=== PATIENT | female | born 2005 | race Caucasian/White ===

== ENCOUNTER 2023-01-22 13:19 | Outpatient (OUT) | payer OTHER, SELFPAY ==
--- NOTE | 2023-01-22 13:24 | US_ITS ---
[address] [address] Patient Name: LINDSAY MOORE MRN: [id number] date: 2005 Sex: F Assigned Patient Location: Current Patient Location: Accession/Order Number: [id number] Exam Date: 01/22/2023 13:25 Report Date: 01/22/2023 15:38 At the request of: PHILOMENA PAZ Procedure: US OB >= 14 weeks Fetus EXAMINATION: US OB >= 14 weeks Fetus HISTORY: MISSED MENSES COMPARISON: No relevant comparison available. FINDINGS: Heart Rate: 139.0 bpm Number: 1.0 Position: Variable Amniotic Fluid Volume: Subjectively normal BIOMETRY: BPD: 4.2 cm cm; 18 weeks 6 days HC: 15.7 cmcm; 18 weeks 4 days AC: 12.7 cm cm; 18 weeks 2 days FL: 2.6 cm cm; 18 weeks 0 days EFW: 230.4 grams FL/AC: 20.7 FL/BPD: 62.3 HC/AC: 1.2 GESTATIONAL AGE: Age by EDC: 17 weeks 6 days GENOVEVA by EDC: 06/26/2023 Age by US: 18 weeks 3 days GENOVEVA by US: 06/22/2023 US/US OB >= 14 weeks Fetus IMPRESSION: 1. Single live intrauterine with growth detailed above. Electronically authenticated by: DOUGLAS QUIROGA Date: 01/22/2023 15:38
== END 2023-01-22 13:20 | disposition home or self-care (01) ==
LOC: US 13:21
PROVIDERS: Visit Provider Obstetrics & Gynecology
DX: Z34.92 Encounter for supervision of normal pregnancy, unspecified, second trimester (principal); Z3A.17 17 weeks gestation of pregnancy
CPT/HCPCS: 76815

== ENCOUNTER 2023-02-10 13:05 | Outpatient (OUT) | payer OTHER, SELFPAY ==
--- NOTE | 2023-02-10 13:08 | US_ITS ---
[address] [address] Patient Name: LINDSAY MOORE MRN: [id number] date: 2005 Sex: F Assigned Patient Location: US Current Patient Location: Accession/Order Number: [id number] Exam Date: 02/10/2023 13:08 Report Date: 02/10/2023 16:07 At the request of: PHILOMENA PAZ Procedure: US OB cervical length EXAMINATION: US OB anatomy, US OB cervical length HISTORY: ANATOMY COMPARISON: No relevant comparison available. TECHNIQUE: Transabdominal sonographic examination was performed for obstetrical and evaluation. FINDINGS: Number: 1 Amniotic Fluid Volume: Subjectively normal position: Cephalic presentation, longitudinal lie Placental Location: Anterior fundal. The placental edge is 4.8 cm from the cervical os Cervix Length: 4.0 cm, closed Heart rate: Present Normal anatomy: Lateral ventricles, cerebellum, posterior fossa, nose, lips, orbits, four-chamber heart, RVOT, LVOT, diaphragm, stomach, kidneys, abdominal cord insertion, bladder, umbilical arteries, three-vessel cord, spine, extremities BIOMETRY: BPD: 5.0 cm 21 weeks 1 days , 46% HC: 18.7 cm 21 weeks 0 days, 35% AC: 15.4 cm 20 weeks 4 days, 25% FL: 3.2 cm 20 weeks 0 days , 10% EFW:352.9 grams; 12 ounces, 14% FL/AC: 20.9 FL/BPD: 64.7 HC/AC: 1.2 GESTATIONAL AGE: Age by EDC: 21 weeks 1 days Age by current US: 20 weeks 5 days GENOVEVA by current US: 06/25/2023 GENOVEVA by EDC: 06/22/2023 US/US OB cervical length IMPRESSION: Normal anatomy scan Closed cervix measuring 4.0 cm in length *Reference: [employer] Practice Guideline for the performance of Obstetric Ultrasound Examinations, November 23, 2006. Electronically authenticated by: CYNDI GATES Date: 02/10/2023 16:07
--- NOTE | 2023-02-10 13:08 | US_ITS ---
[address] [address] Patient Name: LIDNSAY MOORE MRN: [id number] date: 2005 Sex: F Assigned Patient Location: US Current Patient Location: US Accession/Order Number: [id number] Exam Date: 02/10/2023 13:09 Report Date: 02/10/2023 16:07 At the request of: PHILOMENA PAZ Procedure: US OB anatomy EXAMINATION: US OB anatomy, US OB cervical length HISTORY: ANATOMY COMPARISON: No relevant comparison available. TECHNIQUE: Transabdominal sonographic examination was performed for obstetrical and evaluation. FINDINGS: Number: 1 Amniotic Fluid Volume: Subjectively normal position: Cephalic presentation, longitudinal lie Placental Location: Anterior fundal. The placental edge is 4.8 cm from the cervical os Cervix Length: 4.0 cm, closed Heart rate: Present Normal anatomy: Lateral ventricles, cerebellum, posterior fossa, nose, lips, orbits, four-chamber heart, RVOT, LVOT, diaphragm, stomach, kidneys, abdominal cord insertion, bladder, umbilical arteries, three-vessel cord, spine, extremities BIOMETRY: BPD: 5.0 cm 21 weeks 1 days , 46% HC: 18.7 cm 21 weeks 0 days, 35% AC: 15.4 cm 20 weeks 4 days, 25% FL: 3.2 cm 20 weeks 0 days , 10% EFW:352.9 grams; 12 ounces, 14% FL/AC: 20.9 FL/BPD: 64.7 HC/AC: 1.2 GESTATIONAL AGE: Age by EDC: 21 weeks 1 days Age by current US: 20 weeks 5 days GENOVEVA by current US: 06/25/2023 GENOVEVA by EDC: 06/22/2023 US/US OB anatomy IMPRESSION: Normal anatomy scan Closed cervix measuring 4.0 cm in length *Reference: [employer] Practice Guideline for the performance of Obstetric Ultrasound Examinations, November 23, 2006. Electronically authenticated by: CYNDI GATES Date: 02/10/2023 16:07
== END 2023-02-10 13:06 | disposition home or self-care (01) ==
LOC: US 13:06
PROVIDERS: Visit Provider Obstetrics & Gynecology
DX: N92.6 Irregular menstruation, unspecified (principal); Z36.89 Encounter for other specified antenatal screening; Z3A.21 21 weeks gestation of pregnancy
CPT/HCPCS: 76805; 76817

== ENCOUNTER 2023-05-06 15:42 | Outpatient (OUT) | payer OTHER, SELFPAY ==
[2023-05-06 16:15] LABS: Basophils Percent Auto 0.3 % (0.2-2.0); Eosinophils Absolute Auto 0.1 10^3/uL (0.0-0.7); Eosinophils Percent Auto 0.8 % (0.9-7.0); Hematocrit 27.7 % (36.0-48.0); Hemoglobin 9.1 g/dL (12.0-16.0); Immature Granulocytes Abs Auto 0.09 10^3/uL (0.00-0.03); Immature Granulocytes Pct Auto 0.9 % (0.0-0.5); Lymphocytes Absolute Auto 1.7 10^3/uL (1.2-3.8); Lymphocytes Percent Auto 16.9 % (20.5-60.0); Mean Corpuscular HGB Conc 32.9 g/dL (29.9-35.2); Mean Corpuscular Hemoglobin 30.1 pg (26.7-34.0); Mean Corpuscular Volume 91.7 fL (81.0-99.0); Mean Platelet Volume 10.1 fL (9.5-13.5); Monocytes Absolute Auto 0.4 10^3/uL (0.3-0.8); Monocytes Percent Auto 4.4 % (1.7-12.0); Neutrophils Absolute Auto 7.5 10^3/uL (1.4-6.5); Neutrophils Percent Auto 76.7 % (43.0-75.0); Platelet Count 336 10^3/uL (150-450); Red Blood Count 3.02 10^6/uL (4.20-5.40); Red Cell Distribution Width 13.4 % (11.0-15.0); White Blood Count 9.8 10^3/uL (4.0-11.0)
[2023-05-06 16:39] LABS: Estimated Average Glucose 114 mg/dL; Glycohemoglobin A1C 5.6 % (4.5-6.2)
[2023-05-06 16:57] LABS: Thyroid Stimulating Hormone 4.489 uIU/mL (0.516-4.130)
[2023-05-08 06:09] LABS: HBsAg Screen Negative (Negative); HCV Ab Non Reactive (Non Reactive); HIV Ab/p24 Ag Screen Non Reactive (Non Reactive)
[2023-05-08 07:18] LABS: Rapid Plasma Reagin, Quant Non Reactive titer (NonRea<1:1); Rubella Antibodies, IgG 2.32 index (Immune >0.99)
== END 2023-05-06 15:43 | disposition home or self-care (01) ==
LOC: LAB 15:46
PROVIDERS: Visit Provider Obstetrics & Gynecology
DX: N92.6 Irregular menstruation, unspecified (principal)
CPT/HCPCS: 36415; 83036; 84443; 85025; 86592; 86762; 86803; 86850; 86900; 86901; 87340; 87389

== ENCOUNTER 2023-05-21 07:40 | Outpatient (RCR) | payer OTHER, SELFPAY ==
[2023-05-21] MEDS: FERRIC CARBOXYMALTOSE 750 MG in 0.9 % SODIUM CHLORIDE 250 ML 1060 MG IV (13:42)
[2023-05-21 14:00] VITALS: BP 112/74; PULSE 100; TEMP 36.4; O2SAT 96
--- NOTE | 2023-05-21 14:02 | PC.NURSE ---
1325: Pt. to [facility] amb. for iron infusion. Seated in recliner. VSS. #24 gauge initiated to right forearm on first attempt without difficulty. Flushes easily without edema or c/o pain. Pt. tolerated without c/o. 1342: Iv Injectafer initiated at this time. Pt. given bottled water. Denies needs. 1404: Tolerating infusion without c/o. Iv site clear.
--- NOTE | 2023-05-21 14:26 | PC.NURSE ---
1426: Pt. without c/o. D/c'd amb to home.
[2023-05-21 14:34] VITALS: BP 152/80; PULSE 85; TEMP 37.7; O2SAT 96
--- NOTE | 2023-05-21 14:34 | PC.NURSE ---
1435: Pt. relays feeling chilly . Warm blanket provided. VSS. IV KCL infusing. Will cont. to monitor closely. States This happens when I get overly tired.
== END 2023-05-24 23:59 | disposition home or self-care (01) ==
LOC: INF 07:40
PROVIDERS: Visit Provider Obstetrics & Gynecology
DX: O99.019 Anemia complicating pregnancy, unspecified trimester (principal); D50.9 Iron deficiency anemia, unspecified; Z3A.00 Weeks of gestation of pregnancy not specified
CPT/HCPCS: 96365; J1439

== ENCOUNTER 2023-05-27 15:13 | Observation (INO) | payer OTHER, SELFPAY ==
[2023-05-27 15:22] VITALS: BP 127/76; PULSE 90
--- NOTE | 2023-05-27 15:25 | US_ITS ---
[address] [address] Patient Name: LINDSAY MOORE MRN: [id number] date: 2005 Sex: F Assigned Patient Location: [facility] Current Patient Location: [facility] Accession/Order Number: [id number] Exam Date: 05/27/2023 15:56 Report Date: 05/27/2023 16:31 At the request of: PHILOMENA PAZ Procedure: US OB BPP w non-stress EXAMINATION: US OB BPP w non-stress HISTORY: low hr in office COMPARISON: Ultrasound OB anatomy 02/10/2023 TECHNIQUE: Ultrasound biophysical profile was performed in the radiology department. BREATHING MOVEMENTS: 2.0 GROSS BODY MOVEMENTS: 2.0 TONE: 2.0 QUALITATIVE AMNIOTIC FLUID VOLUME: 2.0 PRESENTATION: CEPHALIC HEART RATE: 130.6 bpm bpm. AMNIOTIC FLUID VOLUME: 15.7 cm GESTATIONAL AGE: 36 weeks 2 days CONCLUSION: Total biophysical profile score 8.0. Electronically authenticated by: DOUGLAS QUIROGA Date: 05/27/2023 16:31
== END 2023-05-27 17:25 | disposition home or self-care (01) ==
LOC: FBC 15:15
PROVIDERS: Admitting Provider Obstetrics & Gynecology; Visit Provider Obstetrics & Gynecology
DX: O36.8330 Maternal care for abnormalities of the fetal heart rate or rhythm, third trimester, not applicable or unspecified (principal); Z3A.36 36 weeks gestation of pregnancy
CPT/HCPCS: 76818; 87081; G0378; G0379

== ENCOUNTER 2023-05-27 19:21 | Outpatient (REF) | payer OTHER, SELFPAY ==
--- OUTSIDE RECORDS SUMMARY | 2023-05-27 19:34 | XMS_ITS | CCD ---
Author Organization [facility] Care Team Providers Care Assistant Store Manager Name Role Phone NGHIA, DR ALLISON Attending Unavailable KARASIK, DR ALLISON Consulting Unavailable KARASIK, DR ALLISON Admitting Unavailable REQUEST, NONE LISTED Primary Care Unavaila ble CHELSEY WHITLEY Consulting Unavailable KARASISlava, DR ALLISON Procedure Practitioner Unava ilable REQUEST, NONE LISTED Primary Care Unavaila ble RUTHY, PUSHPA Admitting Unavailable RUTHY, PUSHPA Attending Unavailable RUTHY, PUSHPA Consulting Unavailable BONNIE CACERES Admitting Unavailable REQUEST, NONE LISTED Primary Care Unavaila ble BONNIE CACERES Attending Unavailable REQUEST, NONE LISTED Primary Care Unavaila ble KARASISlava, DR ALLISON Attending Unavailable KARASIK, DR ALLISON Admitting Unavailable BRANDI, DR QUACH Primary Care Unavailable KARASIK, DR ALLISON Consulting Unavailable KARASIK, DR ALLISON Admitting Unavailable KARASIK, DR ALLISON Attending Unavailable NO FAMILY, PHYSICIAN Primary Care Provider Unava ilable MD Chacorta Pino Jr Emergency Provider NO FAMILY, PHYSICIAN Primary Care Unavailable Chacorta Pino Jr Attending Unavailable Chacorta Pino Jr Admitting Unavailable TANA HYDE Attending Unavailab le NO PCP, NO PCP Primary Care Unavailable JUSTINA MIGUEL S Admitting Unavailable JUSTINA MIGUEL S Attending Unavailable GALDINO AVILES Attending Unavailable PHILOMENA PAZ Attending Unavailable PHILOMENA PAZ Attending Unavailable GALDINO AVILES Attending Unavailable Allergies Allergy Classification Reported Allergen(s) Allergy Type Date of Onset Reaction(s) Facility (2 sources) Penicillins; Translations: [PENICILLINS] Drug allergy (disorder) 11-29-2013 [facility] Repository (1 source) Penicillins Drug allergy (disorder) 09-29-2021 [facility] Repository Medications Current Medications Medication Drug Class(es) Dates Sig (Normalized) Sig (Original) cephalexin 500 mg oral capsule (1 source) Cephalosporin Antibacterial Start: 09-29-2021 take 500 mg by mouth every twelve hours Cephalexin Active 500 MG PO Q12H 20 September 29, 2021 12:00am fluconazole 100 mg oral tablet (1 source) Azole Antifungal Start: 09-29-2021 take 3 tablets by mouth once daily Fluconazole (Diflucan) 100 mg tablet Active 100 MG PO Daily September 29, 2021 12:00am Take on day 3 of antibiotics. ondansetron 4 mg disintegrating oral tablet (1 source) Serotonin-3 Receptor Antagonist Start: 09-29-2021 take 4 mg by mouth every eight hours Ondansetron Active 4 MG PO Q8H 9 September 29, 2021 12:00am Problems Active Problems Problem Classification Problem Date Documented Da te Episodic/Chronic Abdominal pain (2 sources) Unspecified abdominal pain; Translations: [Abdominal pain] Onset: 04-14-2023 Episodic Disorders of teeth and jaw (3 sources) Other specified disorders of teeth and supporting structures; Translations: [Toothache] Onset: 05-08-2023 Episodic Esophageal disorders (1 source) Gastro-esophageal reflux disease without esophagitis; Translations: [Gastro-esophageal reflux disease without esophagitis] Onset: 04-15-2023 Chronic Nausea and vomiting (7 sources) Nausea with vomiting, unspecified; Translations: [Vomiting] Onset: 05-09-2021 Episodic Other complications of (1 source) Other specified related conditions, third trimester; Translations: [Other specified related conditions, third trimester] Onset: 04-14-2023 Episodic Other gastrointestinal disorders (1 source) Diarrhea, unspecified; Translations: [DIARRHEA UNSPECIFIED] Onset: 05-10-2021 Episodic Residual codes; unclassified (4 sources) Procedure and treatment not carried out due to patient leaving prior to being seen by health care provider; Translations: [PROC AND TX NOT CARRIED OUT PT LEAVE] Onset: 05-09-2021 Episodic Unclassified (1 source) CONTACT W/AND (SUSP) EXPOS COVID-19; Translations: [CONTACT W/AND (SUSP) EXPOS COVID-19] Onset: 08-02-2020 Unclassified (1 source) Vomiting During Onset: 04-14-2023 Urinary tract infections (1 source) Urinary tract infectious disease; Translations: [Urinary tract infection, site not specified] 09-29-2021 Episodic Past or Other Problems Problem Classification Problem Date Documented Date Episodic/Chronic Other and delivery including normal (7 sources) Encounter for routine follow-up; Translations: [Encounter for supervision of normal , unspecified, third trimester] Onset: 07-09-2020 Episodic Other screening for suspected conditions (not mental disorders or infectious disease) (4 sources) Encounter for screening for Streptococcus B; Translations: [ENC SCR STREPTOCOCCUS B] Onset: 06-27-2020 Episodic Residual codes; unclassified (1 source) 39 weeks gestation of ; Translations: [39 WEEKS GESTATION OF ] Onset: 08-02-2020 Episodic Substance-related disorders (2 sources) Drug use complicating childbirth; Translations: [Cannabis use, unspecified, uncomplicated] Onset: 08-02-2020 Episodic Results Test Name Value Interpretation Reference Range Facility POTASSIUMon 04-15-2023 Potassium [Moles/Vol] 3.1 mmol/L Low 3.5-5.0 [facility] Comment on above: Performed By: #### 2 823-3 #### [facility] ([id number]) [address] [place] [address] 01278 AMYLASEon 04-14-2023 Amylase [Catalytic activity/Vol] 68 U/L Normal 28-100 [facility] Comment on above: Performed By: #### C DEMETRIUS [facility], 3040-3, 1798-8 #### [facility] ([id number]) [address] [place] [address] 04858 COMPLETE BLOOD COUNTon 04-14 Erythrocyte distribution width (RBC) [Ratio] 14.7 % Normal 11.5-15.0 [facility] Comment on above: Performed By: #### C RENETTA ROMO, 3040-3, 1798-8 #### [facility] ([id number]) [address] [place] [address] 22660 Hematocrit (Bld) [Volume fraction] 29.8 % Low 35-47 [facility] Comment on above: Performed By: #### C DEMETRIUS, CMP, 3, 1797-09 #### [facility] ([id number]) [address] [place] [address] 75360 Hemoglobin (Bld) [Mass/Vol] 10.4 g/dL Low 11.7-15.5 [facility] Comment on above: Performed By: #### Sukumar ROMO [facility], 3039-04, 1797-09 #### [facility] ([id number]) [address] [place] [address] 39050 MCH (RBC) [Entitic mass] 31.3 pg Normal 27-34 [facility] Comment on above: Performed By: #### Sukumra ROMO [facility], 3039-04, 1797-09 #### [facility] ([id number]) [address] [place] [address] 01044 MCHC (RBC) [Mass/Vol] 34.8 g/dL Normal 32-36 [facility] Comment on above: Performed By: #### Sukumar ROMO [facility], 3039-04, 1797-09 #### [facility] ([id number]) [address] [place] [address] 85980 MCV (RBC) [Entitic vol] 90 fL Normal 80-100 [facility] Comment on above: Performed By: #### Sukumar ROMO CMP, 3039-04, 1797-09 #### [facility] ([id number]) [address] [place] [address] 38900 Platelet mean volume (Bld) [Entitic vol] 8.2 fL Normal 7-12 [facility] Comment on above: Performed By: #### Sukumar ROMO CMP, 3039-04, 1797-09 #### [facility] ([id number]) [address] [place] [address] 77993 Platelets (Bld) [#/Vol] 335 10*3/uL Normal 150-450 [facility] Comment on above: Performed By: #### C DEMETRIUS, CMP, 3, 1797-09 #### [facility] ([id number]) [address] [place] [address] 51114 RBC COUNT 3.31 X10E12/L Low 3.80-5.20 [facility] Comment on above: Performed By: #### Sukumar ROMO, CMP, 3, 1797-09 #### [facility] ([id number]) [address] [place] [address] 05921 WBC (Bld) [#/Vol] 11.7 10*3/uL High 4.0-11.0 [facility] Comment on above: Performed By: #### Sukumar ROMO, CMP, 3039-04, 1797-09 #### [facility] ([id number]) [address] [place] [address] 14334 COMPREHENSIVE METABOLIC PANE Jozef 04-14-2023 Albumin [Mass/Vol] 3.5 g/dL Normal 3.2-5.3 [facility] Comment on above: Performed By: #### Sukumar ROMO, CMP, 3039-04, 1797-09 #### [facility] ([id number]) [address] [place] [address] 79077 ALP [Catalytic activity/Vol] 78 U/L Normal 39-130 [facility] Comment on above: Performed By: #### Sukumar BC, CMP, 3, 1797-09 #### [facility] ([id number]) [address] [place] [address] 07692 ALT [Catalytic activity/Vol] 11 U/L Normal 0-31 [facility] Comment on above: Performed By: #### Sukumar BC, CMP, 3, 1797-09 #### [facility] ([id number]) [address] [place] [address] 36564 Anion gap [Moles/Vol] 10 mmol/L Normal 5-15 [facility] Comment on above: Performed By: #### Sukumar ROMO, [facility], 3, 1797-09 #### [facility] ([id number]) [address] [place] [address] 39761 AST [Catalytic activity/Vol] 19 U/L Normal 0-41 [facility] Comment on above: Performed By: #### Sukumar ROMO, [facility], 3039-04, 1797-09 #### [facility] ([id number]) [address] [place] [address] 43545 Bilirubin [Mass/Vol] 0.5 mg/dL Normal 0.3-1.2 [facility] Comment on above: Performed By: #### Sukumar ROMO [facility], 3039-04, 1797-09 #### [facility] ([id number]) [address] [place] [address] 23840 Calcium [Mass/Vol] 8.6 mg/dL Normal 8.5-10.5 [facility] Comment on above: Performed By: #### Sukumar ROMO [facility], 3039-04, 1797-09 #### [facility] ([id number]) [address] [place] [address] 87026 Chloride [Moles/Vol] 107 mmol/L Normal 98-109 [facility] Comment on above: Performed By: #### Sukumar ROMO, CMP, 3039-04, 1797-09 #### [facility] ([id number]) [address] [place] [address] 48856 CO2 [Moles/Vol] 16 mmol/L Low 22-32 [facility] Comment on above: Performed By: #### Sukumar BC, CMP, 3039-04, 1797-09 #### [facility] ([id number]) [address] [place] [address] 97747 Creatinine [Mass/Vol] 0.54 mg/dL Normal 0.40-1.00 [facility] Comment on above: Result Comment: METH OD TRACEABLE TO IDMS STANDARD Performed By: #### Sukumar ROMO CMP, 3, 1797-09 #### [facility] ([id number]) [address] [place] [address] 24933 eGFR (CKD-EPI) NON-RACE DEPENDENT >90 Normal >59 [facility] Comment on above: Result Comment: Reported eGFR is based on the CKD-EPI 2020 equation that does not use a race coefficient. Performed By: #### Sukumar ROMO CMP, 3, 1797-09 #### [facility] ([id number]) [address] [place] [address] 03471 Glucose [Mass/Vol] 113 mg/dL High 65-99 [facility] Comment on above: Performed By: #### Sukumar ROMO CMP, 3039-04, 1797-09 #### [facility] ([id number]) [address] [place] [address] 19464 Potassium [Moles/Vol] 2.9 mmol/L Low 3.5-5.0 [facility] Comment on above: Performed By: #### Sukumar ROMO CMP, 3039-04, 1797-09 #### [facility] ([id number]) [address] [place] [address] 76300 Protein [Mass/Vol] 7.3 g/dL Normal 6.0-8.0 [facility] Comment on above: Performed By: #### Sukumar ROMO CMP, 3, 1797-09 #### [facility] ([id number]) [address] [place] [address] 10794 Sodium [Moles/Vol] 133 mmol/L Low 134-146 [facility] Comment on above: Performed By: #### Sukumar ROMO CMP, 3, 1797-09 #### [facility] ([id number]) [address] [place] [address] [place] [address] Urea nitrogen [Mass/Vol] 6 mg/dL Normal 5-23 [facility] Comment on above: Performed By: #### C BC, [facility], 3040-3, 1798-8 #### [facility] ([id number]) [address] [place] [address] 86020 DRUG SCREEN, URINEon 024 AMPHETAMINE/METHAMP Negative Normal NEG [facility] Comment on above: Result Comment: AMPH /METH screening cut off = 1000 ng/mL Performed By: #### D BREEN #### [facility] ([id number]) [address] [place] [address] 63223 BARBITURATES Negative Normal NEG [facility] Comment on above: Result Comment: Emelyn iturates screening cut off value = 200 ng/mL Performed By: #### D BREEN #### [facility] ([id number]) [address] [place] [address] 62096 BENZODIAZEPINES Negative Normal NEG [facility] Comment on above: Result Comment: Bryan odiazepines screening cut off value = 200 ng/mL Performed By: #### D BREEN #### [facility] ([id number]) [address] [place] [address] 72816 CANNABINOIDS Positive Abnormal NEG [facility] Comment on above: Result Comment: Conf irmation available upon request. Cannabinoids/THC screening cut off value = 50 ng/mL Performed By: #### D BREEN #### [facility] ([id number]) [address] [place] [address] 43904 COCAINE METABOLITE Negative Normal NEG [facility] Comment on above: Result Comment: Coca ine screening cut off value = 300 ng/mL Performed By: #### D BREEN #### [facility] ([id number]) [address] [place] [address] 79455 ECSTASY Negative Normal NEG [facility] Comment on above: Result Comment: Ecst asy screening cut off value = 500 ng/mL This report is intended for use in clinical monitoring or management of patients. Performed By: #### D BREEN #### [facility] ([id number]) [address] [place] [address] 94877 METHADONE Negative Normal NEG [facility] Comment on above: Result Comment: Meth adone screening cut off value = 300 ng/mL. Performed By: #### D BREEN #### [facility] ([id number]) [address] [place] [address] 95964 OPIATES Negative Normal NEG [facility] Comment on above: Result Comment: Opia melissa screening cut off value = 300 ng/mL NOTE: This test is used for the detection of codeine, hydrocodone (>1000 ng/mL), morphine and hydromorphone (>900 ng/mL) in urine. Performed By: #### D BREEN #### [facility] ([id number]) [address] [place] [address] 42352 OXYCODONE Negative Normal NEG [facility] Comment on above: Result Comment: Oxyc odone screening cut off value = 300 ng/mL NOTE: This test is used for the detection of oxycodone and oxymorphone in urine. Performed By: #### D BREEN #### [facility] ([id number]) [address] [place] [address] 99624 PHENCYCLIDINE Negative Normal NEG [facility] Comment on above: Result Comment: Phen cyclidine screening cut off value = 25 ng/mL Performed By: #### D BREEN #### [facility] ([id number]) [address] [place] [address] 32784 LIPASEon 04-14-2023 Lipase [Catalytic activity/Vol] 29 U/L Normal 17-40 [facility] Comment on above: Performed By: #### C BC, CMP, 3040-3, 1798-8 #### [facility] ([id number]) [address] [place] [address] [place] [address] SARS/FLU A+B/RS[facility] SARS/FLU A+B/RSV by NAAT/Molecular FLU A PCR Negative (qualifier value) FLU B PCR Negative (qualifier value) RSV by PCR Positive (qualifier value) SARS CoV 2 Not detected (qualifier value) NOTE The Xpert Xpress SARS-CoV-2/Flu/RSV Plus test is a rapid, multiplexed real-time RT-PCR test intended for the simultaneous qualitative detection and differentiation of SARS-CoV-2, influenza A, influenza B and respiratory syncytial virus (RSV) viral RNA from individuals suspected of respiratory viral infection consistent with COVID-19 by their healthcare provider. This test has not been validated in asymptomatic patients. The Xpert Xpress SARS-CoV-2 test is intended for use by qualified and trained operators who are performing tests using either [employer] or [employer] systems and is limited to laboratories that meet the CLIA requirements to perform high and moderate complexity tests. The Xpert Xpress SARS-CoV-2/Flu/RSV Plus is only for use under the Food and Drug Administration's Emergency Use Authorization. Results are for the simultaneous detection and differentiation of SARS-CoV-2, influenza A, influenza B and RSV nucleic acids in clinical specimens. SARS-CoV-2, influenza A, influenza B and RSV RNA identified by this test are generally detectable in upper respiratory samples during the acute phase of infection. Positive results are indicative of the presence of the identified virus, but do not rule out bacterial infection or co-infection with other pathogens not detected by this test. Clinical correlation with patient history and other diagnostic information is necessary to determine patient infection status. The agent detected may not be the definite cause of disease. Negative results do not preclude SARS-CoV-2, influenza A, influenza B and RSV infection and should not be used as the sole basis for treatment or other patient management decisions. Negative results must be combined with clinical observations, patient history and epidemiological information. An Invalid result may occur with specimen-associated inhibition unable to be resolved with specimen repeat. Fact Sheet for Healthcare Providers: https://www.fda.gov/ media/808227/downloa d Fact Sheet for Patients: https://www.fda.gov/ media/706953/downloa d Normal [facility] Comment on above: Performed By: #### C OVFLR #### [facility] ([id number]) [address] [place] [address] [place] [address] URINALYSISon 04-14-2023 Amorphous sediment LM Ql (Urine sed) PRESENT Abnormal NONE [facility] Comment on above: Performed By: #### U A #### [facility] ([id number]) [address] [place] [address] [place] [address] Bilirubin Ql (U) Negative Normal NEG [facility] Comment on above: Performed By: #### U A #### [facility] ([id number]) [address] [place] [address] [place] [address] BLOOD/HGB Negative Normal NEG [facility] Comment on above: Performed By: #### U A #### [facility] ([id number]) [address] [place] [address] [place] [address] Color (U) YELLOW Normal YELLOW [facility] Comment on above: Performed By: #### U A #### [facility] ([id number]) [address] [place] [address] [place] [address] Glucose Ql (U) Negative Normal NEG [facility] Comment on above: Performed By: #### U A #### [facility] ([id number]) [address] [place] [address], [place] [address] Ketones Ql (U) >80 Abnormal NEG [facility] Comment on above: Performed By: #### U A #### [facility] ([id number]) [address] [place] [address], [place] [address] Leukocyte esterase Test strip Ql (U) Negative Normal NEG [facility] Comment on above: Performed By: #### U A #### [facility] ([id number]) [address] [place] [address] [place] [address] Nitrite Ql (U) Negative Normal NEG [facility] Comment on above: Performed By: #### U A #### [facility] ([id number]) [address] [place] [address] 36255 pH (U) 8.5 [pH] Normal 5.0-8.5 [facility] Comment on above: Performed By: #### U A #### [facility] ([id number]) [address] [place] [address] 50314 Protein Ql (U) Trace Abnormal NEG [facility] Comment on above: Result Comment: Not confirmed. Interpret positive result with caution due to alkaline pH. Suggest quantitative Urine Protein be tested. Performed By: #### U A #### [facility] ([id number]) [address] [place] [address] 24124 R.B.CELLS 0 /hpf Normal 0-5 [facility] Comment on above: Performed By: #### U A #### [facility] ([id number]) [address] [place] [address] 61332 Specific gravity (U) [Rel density] 1.020 Normal 1.003-1.035 [facility] Comment on above: Performed By: #### U A #### [facility] ([id number]) [address] [place] [address] 36575 SQUAMOUS EPITHELIUM 3 /hpf Normal 0-5 [facility] Comment on above: Performed By: #### U A #### [facility] ([id number]) [address] [place] [address] 96854 TURBIDITY HAZY Abnormal CLEAR [facility] Comment on above: Performed By: #### U A #### [facility] ([id number]) [address] [place] [address] 54049 Urobilinogen Qn (U) 0.2 {Sam'U}/dL Normal <1.1 [facility] Comment on above: Performed By: #### U A #### [facility] ([id number]) [address] [place] [address], [place] [address] W.B.CELLS 2 /hpf Normal 0-5 [facility] Comment on above: Performed By: #### U A #### [facility] ([id number]) [address] [place] [address], [place] [address] Albumin [Mass/volume] in Ser um or PlasmaOrdered By: Dee Hammonds on 09-29-2021 Albumin [Mass/Vol] 4.9 g/dL 3.2-5.5 [facility] Automated epithelial cells c ount in urine sediment (number/area)Ordered By: Dee Hammonds on 09-29-2021 Epithelial cells Auto (Urine sed) [#/Area] 3-4 [HPF] 0-2 [facility] Automated erythrocytes count in urine sediment (number/area)Ordered By: Dee Hammonds on 09-29-2021 RBC Auto (Urine sed) [#/Area] 0-1 [HPF] 0-4 [facility] Automated leukocytes count i n urine sediment (number/area)Ordered By: Dee Hammonds on 09-29-2021 WBC Auto (Urine sed) [#/Area] 0-1 [HPF] 0-4 [facility] Basophils Auto (Bld) [#/Vol] Ordered By: Dee Hammonds on 09-29-2021 Basophils (Bld) [#/Vol] 0.0 10*3/uL 0.0-0.1 [facility] Basophils/100 WBC Auto (Bld) Ordered By: Dee Hammonds on 09-29-2021 Basophils/100 WBC (Bld) 0.3 % . [facility] Bilirubin Test strip Ql (U)O rdered By: Dee Hammonds on 09-29-2021 Bilirubin Ql (U) Negative Negative [facility] Blood hemoglobin measurement (mass/volume)Ordered By: Dee Hammonds on 09-29-2021 Hemoglobin (Bld) [Mass/Vol] 12.0 g/dL 12.0-16.0 [facility] Blood leukocytes automated c ount (number/volume)Ordered By: Dee Hammonds on 09-29-2021 WBC (Bld) [#/Vol] 10.3 10*3/uL 4.5-13.5 [facility] Color Auto (U)Ordered By: Sergey Hammonds on 09-29-2021 Color (U) Yellow Yellow [facility] Complete Blood Count Auto Di ffon 09-29-2021 Basophils (Bld) [#/Vol] 0.0 10*3/uL Normal 0.0-0.1 [facility] Comment on above: Result Comment: PERF ORMED BY: [place] [address] PATHOLOGIST FILM PROCESSING SHIFT SUPERVISOR ALIX VARGAS M.D. Performed By: #### C BC, CMP, HS TROP #### [facility] [address] Basophils/100 WBC (Bld) 0.3 % Normal . [facility] Comment on above: Performed By: #### C BC, CMP, HS TROP #### [facility] [address] [place] [address] [place] Eosinophils (Bld) [#/Vol] 0.0 10*3/uL Normal 0.0-0.7 [facility] Comment on above: Performed By: #### C BC, CMP, HS TROP #### [facility] [address] [place] [address] [place] Eosinophils/100 WBC (Bld) 0.0 % Normal . [facility] Comment on above: Performed By: #### C BC, CMP, HS TROP #### [facility] [address] [place] [address] [place] Erythrocyte distribution width (RBC) [Ratio] 18.9 % High 11.9-15.3 [facility] Comment on above: Performed By: #### C BC, CMP, HS TROP #### [facility] [address] [place] [address] [place] Hematocrit (Bld) [Volume fraction] 36.9 % Normal 36.0-46.0 [facility] Comment on above: Performed By: #### C BC, CMP, HS TROP #### [address] Hemoglobin (Bld) [Mass/Vol] 12.0 g/dL Normal 12.0-16.0 [facility] Comment on above: Performed By: #### C BC, CMP, HS TROP #### [address] Lymphocytes (Bld) [#/Vol] 0.6 10*3/uL Low 1.20-4.8 [facility] Comment on above: Performed By: #### C BC, CMP, HS TROP #### [address] Lymphocytes/100 WBC (Bld) 5.7 % Normal . [facility] Comment on above: Performed By: #### C BC, CMP, HS TROP #### [address] MCH (RBC) [Entitic mass] 27.1 pg Normal 25.0-35.0 [facility] Comment on above: Performed By: #### C BC, CMP, HS TROP #### [address] MCV (RBC) [Entitic vol] 83.5 fL Normal 78-102 [facility] Comment on above: Performed By: #### C BC, CMP, HS TROP #### [address] Mean Corpuscular HGB Conc 32.5 g/dL Normal 31.0-37.0 [facility] Comment on above: Performed By: #### C BC, CMP, HS TROP #### [address] Monocytes (Bld) [#/Vol] 0.2 10*3/uL Normal 0.1-1.00 [facility] Comment on above: Performed By: #### C BC, CMP, HS TROP #### [address] Monocytes/100 WBC (Bld) 1.9 % Normal . [facility] Comment on above: Performed By: #### C BC, CMP, HS TROP #### [facility] [address] [place] [address] [place] Neutrophils (Bld) [#/Vol] 9.4 10*3/uL High 1.2-7.7 [facility] Comment on above: Performed By: #### C BC, CMP, HS TROP #### [facility] [address] [place] [address] [place] Neutrophils/100 WBC (Bld) 92.1 % Normal . [facility] Comment on above: Performed By: #### C BC, CMP, HS TROP #### [facility] [address] [place] [address] [place] Nucleated RBC/100 WBC (Bld) [Ratio] 0.0 % Normal 0-0.5 [facility] Comment on above: Performed By: #### C BC, CMP, HS TROP #### [facility] [address] [place] [address] [place] Platelet mean volume (Bld) [Entitic vol] 8.4 fL Normal 6.3-10.7 [facility] Comment on above: Performed By: #### C BC, CMP, HS TROP #### [facility] [address] [place] [address] [place] Platelets (Bld) [#/Vol] 428 10*3/uL Normal 150-450 [facility] Comment on above: Performed By: #### C BC, CMP, HS TROP #### [facility] [address] [place] [address] [place] RBC (Bld) [#/Vol] 4.42 10*6/uL Normal 4.10-5.10 [facility] Comment on above: Performed By: #### C BC, CMP, HS TROP #### [facility] [address] [place] [address] [place] WBC (Bld) [#/Vol] 10.3 10*3/uL Normal 4.5-13.5 [facility] Comment on above: Performed By: #### C BC, CMP, HS TROP #### [facility] [address] [place] [address] [place] Comprehensive Metabolic Pane jozef 09-29-2021 Albumin [Mass/Vol] 4.9 g/dL Normal 3.2-5.5 [facility] Comment on above: Performed By: #### C BC, CMP, HS TROP #### [facility] [address] [place] [id number] [place] Albumin/Globulin [Mass ratio] 1.5 {ratio} Normal [facility] Comment on above: Performed By: #### C BC, CMP, HS TROP #### [facility] [address] ALP [Catalytic activity/Vol] 50 U/L Normal 32-92 [facility] Comment on above: Performed By: #### C BC, CMP, HS TROP #### [facility] [address] ALT [Catalytic activity/Vol] 16 U/L Normal 10-60 [facility] Comment on above: Performed By: #### C BC, CMP, HS TROP #### [facility] [address] [place] [id number] [place] AST [Catalytic activity/Vol] 28 U/L Normal 10-42 [facility] Comment on above: Performed By: #### C BC, CMP, HS TROP #### [facility] [address] [place] [id number] [place] Bilirubin [Mass/Vol] 0.9 mg/dL Normal 0.3-1.2 [facility] Comment on above: Performed By: #### C BC, CMP, HS TROP #### [facility] [address] [place] [id number] [place] Calcium [Mass/Vol] 9.6 mg/dL Normal 8.2-10.2 [facility] Comment on above: Performed By: #### C BC, CMP, HS TROP #### [facility] [address] [place] [id number] [place] Chloride [Moles/Vol] 104 mmol/L Normal 95-114 [facility] Comment on above: Performed By: #### C BC, CMP, HS TROP #### [facility] [address] [place] [address] [place] CO2 [Moles/Vol] 18.2 mmol/L Low 22.0-30.0 [facility] Comment on above: Performed By: #### C BC, CMP, HS TROP #### [facility] [address] [place] [address] [place] Creatinine [Mass/Vol] 0.89 mg/dL Normal 0.44-1.03 [facility] Comment on above: Performed By: #### C BC, CMP, HS TROP #### [facility] [address] [place] [address] [place] Creatinine Clr Calc Pharmacy 82.53 [facility] Comment on above: Result Comment: PERF ORMED BY: [place] [address] PATHOLOGIST FILM PROCESSING SHIFT SUPERVISOR ALIX VARGAS M.D. Performed By: #### C BC, CMP, HS TROP #### [facility] [address] Estimated GFR ( Lisette > 60 [facility] Comment on above: Result Comment: GFR estimated reference range: According to KDOQI guidelines, <60 ml/min/1.73m2 is sufficient to diagnose a patient with chronic kidney disease. Performed By: #### C BC, CMP, HS TROP #### [facility] [address] Estimated GFR (Non- Am > 60 [facility] Comment on above: Performed By: #### C BC, CMP, HS TROP #### [facility] [address] [place] [address] [place] Globulin (S) [Mass/Vol] 3.2 g/dL [facility] Comment on above: Performed By: #### C BC, CMP, HS TROP #### [facility] [address] [place] [address] [place] Glucose [Mass/Vol] 110 mg/dL High 70-100 [facility] Comment on above: Result Comment: Vesta om Glucose Reference Range is dependent on time and content of last meal. Glucose of more than 200 mg/dL in a nonstressed, ambulatory subject supports the diagnosis of Diabetes Mellitus. ADA recommended reference range Performed By: #### C BC, CMP, HS TROP #### [facility] [address] [place] [id number] [place] Potassium [Moles/Vol] 3.2 mmol/L Low 3.5-5.1 [facility] Comment on above: Performed By: #### C BC, CMP, HS TROP #### [facility] [address] [place] [address] [place] Protein [Mass/Vol] 8.1 g/dL High 6.1-7.9 [facility] Comment on above: Performed By: #### C BC, CMP, HS TROP #### [facility] [address] Sodium [Moles/Vol] 137 mmol/L Normal 136-146 [facility] Comment on above: Performed By: #### C BC, CMP, HS TROP #### [facility] [address] [place] [address] [place] Urea nitrogen [Mass/Vol] 10 mg/dL Normal 9-23 [facility] Comment on above: Performed By: #### C BC, CMP, HS TROP #### [facility] [address] [place] [address] [place] Creatinine and Glomerular fi ltration rate.predicted panel (S/P/Bld)Ordered By: Dee Hammonds on 09-29-2021 Creatinine [Mass/Vol] 0.89 mg/dL 0.44-1.03 [facility] Dipstick and Microscopicon 0 09-29-2021 Appearance (U) Clear Normal Clear [facility] Comment on above: Order Comment: Name Collection Type:: Clean-Voided Midstream Performed By: #### A SALOMÓN GARCIAG #### [facility] [address] [place] [id number] [place] Bacteria,Urine 1+ High None Seen [facility] Comment on above: Order Comment: Name Collection Type:: Clean-Voided Midstream Performed By: #### A SALOMÓN GARCIAG #### [facility] [address] [place] [address] [place] Bilirubin,Urine Negative Normal Negative [facility] Comment on above: Order Comment: Name Collection Type:: Clean-Voided Midstream Performed By: #### A DDONUAPLUS, UHCG #### [facility] [address] [place] [address] Color (U) Yellow Normal Yellow [facility] Comment on above: Order Comment: Name Collection Type:: Clean-Voided Midstream Performed By: #### A DDONUAPLUS, UHCG #### [place] [address] [place] Glucose Ql (U) Normal Normal Normal [facility] Comment on above: Order Comment: Name Collection Type:: Clean-Voided Midstream Performed By: #### A DDONUAPLUS, UHCG #### [place] [address] [place] Ketones Ql (U) 2+ High Negative [facility] Comment on above: Order Comment: Name Collection Type:: Clean-Voided Midstream Performed By: #### A DDONUAPLUS, UHCG #### [facility] [address] [place] [address] Leukocyte esterase Test strip Ql (U) 1+ High Negative [facility] Comment on above: Order Comment: Name Collection Type:: Clean-Voided Midstream Performed By: #### A DDONUAPLUS, UHCG #### [facility] [address] [place] [address] [place] Nitrite,Urine Negative Normal Negative [facility] Comment on above: Order Comment: Name Collection Type:: Clean-Voided Midstream Performed By: #### A DDONUAPLUS, UHCG #### [place] [address] [place] Occult Blood,Urine Negative Normal Negative [facility] Comment on above: Order Comment: Name Collection Type:: Clean-Voided Midstream Performed By: #### A DDONUAPLUS, UHCG #### [address] pH (U) 8.5 [pH] Normal 5.0-9.0 [facility] Comment on above: Order Comment: Name Collection Type:: Clean-Voided Midstream Performed By: #### A DDONUAPLUS, UHCG #### [address] Protein (U) [Mass/Vol] 30 mg/dL High Negative [facility] Comment on above: Order Comment: Name Collection Type:: Clean-Voided Midstream Performed By: #### A DDONUAPLUS, UHCG #### [address] RBC LM.HPF (Urine sed) [#/Area] 0 /[HPF] Normal 0-4 [facility] Comment on above: Order Comment: Name Collection Type:: Clean-Voided Midstream Performed By: #### A DDONUAPLUS UHCG #### [address] Specificy [place],Urine 1.019 Normal 1.001-1.030 [facility] Comment on above: Order Comment: Name Collection Type:: Clean-Voided Midstream Performed By: #### A DDONUAPLUS, UHCG #### [address] Squamous Epithelial Cell,Urine 3-4 High 0-2 [facility] Comment on above: Order Comment: Name Collection Type:: Clean-Voided Midstream Performed By: #### A DDONUAPLUS, UHCG #### [address] Urobilinogen,Urine Normal Normal Normal [facility] Comment on above: Order Comment: Name Collection Type:: Clean-Voided Midstream Performed By: #### A DDONUAPLUS, UHCG #### [address] WBC LM.HPF (Urine sed) [#/Area] 0 /[HPF] Normal 0-4 [facility] Comment on above: Order Comment: Name Collection Type:: Clean-Voided Midstream Performed By: #### A DDONUAPLUS, CG #### [facility] [address] Yeast,Urine Rare Critically abnormal None Seen [facility] Comment on above: Order Comment: Name Collection Type:: Clean-Voided Midstream Performed By: #### A [facility], [facility] #### [facility] [address] ECG 12 lead ECGon 09-29-2021 ECG [address] [facility] [place] [address] [place] [address] Electrocardiograph Report Signed Patient: Maude Moore MR#: [id number] 2 : 2005 Acct:[id number] Age/Sex: 16 / F ADM Date: 09/29/21 Loc: ER Room: Type: [facility] ER Attending Dr: Ordering Provider: Dee Hammonds APRN Date of Service: 09/29/2109/13/1500 ECG/ECG 12 lead ECG: Nausea/Vomiting/Diar max Copies to: Test Reason : Blood Pressure : / mmHG Vent. Rate : 060 BPM Atrial Rate : 060 BPM P-R Int : 112 ms QRS Dur : 084 ms QT Int : 470 ms P-R-T Axes : 032 078 054 degrees QTc Int : 470 ms Sinus rhythm with premature supraventricular complexes Cannot rule out Anterior infarct , age undetermined Abnormal ECG No previous ECGs available Confirmed by TANA VILLALTA MD ([id number]) on 09/29/2021 7:04:39 PM Referred By: Electronically Signed By:TANA VILLALTA MD Transcribed By: MUS Signed By Tana Villalta MD 09/13 190 Normal [facility] Eosinophils Auto (Bld) [#/Vo l]Ordered By: Dee Hammonds on 09-29-2021 Eosinophils (Bld) [#/Vol] 0.0 10*3/uL 0.0-0.7 [facility] Eosinophils/100 WBC Auto (Bl d)Ordered By: Dee Hammonds on 09-29-2021 Eosinophils/100 WBC (Bld) 0.0 % . [facility] Erythrocyte distribution wid th Auto (RBC) [Ratio]Ordered By: Dee Hammonds on 09-29-2021 Erythrocyte distribution width (RBC) [Ratio] 18.9 % 11.9-15.3 [facility] Estimated glomerular filtrat ion rate (GFR) non- AmericanOrdered By: Dee Hammonds on 09-29-2021 GFR/1.73 sq M.predicted among non-blacks MDRD (S/P/Bld) [Vol rate/Area] > 60 mL/Min [facility] Globulin Calc (S) [Mass/Vol] Ordered By: Dee Hammonds on 09-29-2021 Globulin (S) [Mass/Vol] 3.2 g/dL [facility] HCG ( test) IA.rapi d Ql (U)Ordered By: Dee Hammonds on 09-29-2021 HCG ( test) Ql (U) Negative [facility] HCG,Urineon 09-29-2021 Beta HCG ( test) Ql (U) Negative Normal [facility] Comment on above: Order Comment: Name Collection Type:: Clean-Voided Midstream Result Comment: PERF ORMED BY: [place] [address] PATHOLOGIST FILM PROCESSING SHIFT SUPERVISOR ALIX VARGAS M.D. Performed By: #### A DDONUAPLUS, [facility] #### [address] Hematocrit Auto (Bld) [Volum e fraction]Ordered By: Dee Hammonds on 09-29-2021 Hematocrit (Bld) [Volume fraction] 36.9 % 36.0-46.0 [facility] Ketones Auto test strip (U) [Mass/Vol]Ordered By: Dee Hammonds on 09-29-2021 Ketones (U) [Mass/Vol] 2+ Negative [facility] - Hematology and Cell countsOrdered By: Dee Hammonds on 09-29-2021 Nucleated RBC/100 WBC (Bld) [Ratio] 0.0 % 0-0.5 [facility] Lymphocytes Auto (Bld) [#/Vo l]Ordered By: Dee Hammonds on 09-29-2021 Lymphocytes (Bld) [#/Vol] 0.6 10*3/uL 1.20-4.8 [facility] Lymphocytes/100 WBC Auto (Bl d)Ordered By: Dee Hammonds on 09-29-2021 Lymphocytes/100 WBC (Bld) 5.7 % . [facility] MCH Auto (RBC) [Entitic mass ]Ordered By: Dee Hammonds on 09-29-2021 MCH (RBC) [Entitic mass] 27.1 pg 25.0-35.0 [facility] MCHC Auto (RBC) [Mass/Vol]Or dered By: Dee Hammonds on 09-29-2021 MCHC (RBC) [Mass/Vol] 32.5 g/dL 31.0-37.0 [facility] MCV Auto (RBC) [Entitic vol] Ordered By: Dee Hammonds on 09-29-2021 MCV (RBC) [Entitic vol] 83.5 fL 78-102 [facility] Monocytes Auto (Bld) [#/Vol] Ordered By: Dee Hammonds on 09-29-2021 Monocytes (Bld) [#/Vol] 0.2 10*3/uL 0.1-1.00 [facility] Monocytes/100 WBC Auto (Bld) Ordered By: Dee Hammonds on 09-29-2021 Monocytes/100 WBC (Bld) 1.9 % . [facility] Neutrophils Auto (Bld) [#/Vo l]Ordered By: Dee Hammonds on 09-29-2021 Neutrophils (Bld) [#/Vol] 9.4 10*3/uL 1.2-7.7 [facility] Neutrophils/100 WBC Auto (Bl d)Ordered By: Dee Hammonds on 09-29-2021 Neutrophils/100 WBC (Bld) 92.1 % . [facility] Nitrite Test strip Ql (U)Ord ered By: Dee Hammonds on 09-29-2021 Nitrite Ql (U) Negative Negative [facility] No Panel InformationOrdered By: Dee Hammonds on 09-29-2021 Estimated GFR () > 60 mL/Min [facility] Comment on above: GFR estimated refere nce range: According to KDOQI guidelines, <60 ml/min/1.73m2 is sufficient to diagnose a patient with chronic kidney disease. Pharmacy Creatinine Clearance (Chem 82.53 [facility] Platelet mean volume Auto (B ld) [Entitic vol]Ordered By: Dee Hammonds on 09-29-2021 Platelet mean volume (Bld) [Entitic vol] 8.4 fL 6.3-10.7 [facility] Platelets Auto (Bld) [#/Vol] Ordered By: Dee Hammonds on 09-29-2021 Platelets (Bld) [#/Vol] 428 10*3/uL 150-450 [facility] Protein Auto test strip (U) [Mass/Vol]Ordered By: Dee Hammonds on 09-29-2021 Protein (U) [Mass/Vol] 30 mg/dL Negative [facility] Protein [Mass/volume] in Ser um or PlasmaOrdered By: Dee Hammonds on 09-29-2021 Protein [Mass/Vol] 8.1 g/dL 6.1-7.9 [facility] RBC Auto (Bld) [#/Vol]Ordere d By: Dee Hammonds on 09-29-2021 RBC (Bld) [#/Vol] 4.42 10*6/uL 4.10-5.10 [facility] Serum or plasma alanine carmona otransferase measurement without P-5'-P (enzymatic activiOrdered By: Dee Hammonds on 09-29-2021 ALT No additional P-5'-P [Catalytic activity/Vol] 16 U/L 10-60 [facility] Serum or plasma albumin/glob ulin mass ratioOrdered By: Dee Hammonds on 09-29-2021 Albumin/Globulin [Mass ratio] 1.5 {ratio} [facility] Serum or plasma alkaline mckayla sphatase measurement (enzymatic activity/volume)Ordered By: Dee Hammonds on 09-29-2021 ALP [Catalytic activity/Vol] 50 U/L 32-92 [facility] Serum or plasma aspartate am inotransferase measurement (enzymatic activity/volume)Ordered By: Dee Hammonds on 09-29-2021 AST [Catalytic activity/Vol] 28 U/L 10-42 [facility] Serum or plasma calcium moira urement (mass/volume)Ordered By: Dee Hammonds on 09-29-2021 Calcium [Mass/Vol] 9.6 mg/dL 8.2-10.2 [facility] Serum or plasma chloride jey surement (moles/volume)Ordered By: Dee Hammonds on 09-29-2021 Chloride [Moles/Vol] 104 mmol/L 95-114 [facility] Serum or plasma glucose moira urement (mass/volume)Ordered By: Dee Hammonds on 09-29-2021 Glucose [Mass/Vol] 110 mg/dL 70-100 [facility] Comment on above: ADA recommended refe rence range Random Glucose Reference Range is dependent on time and content of last meal. Glucose of more than 200 mg/dL in a nonstressed, ambulatory subject supports the diagnosis of Diabetes Mellitus. Serum or plasma potassium me asurement (moles/volume)Ordered By: Dee Hammonds on 09-29-2021 Potassium [Moles/Vol] 3.2 mmol/L 3.5-5.1 [facility] Serum or plasma sodium measu rement (moles/volume)Ordered By: Dee Hammonds on 09-29-2021 Sodium [Moles/Vol] 137 mmol/L 136-146 [facility] Serum or plasma total biliru bin measurement (mass/volume)Ordered By: Dee Hammonds on 09-29-2021 Bilirubin [Mass/Vol] 0.9 mg/dL 0.3-1.2 [facility] Serum or plasma total carbon dioxide measurement (moles/volume)Ordered By: Dee Hammonds on 09-29-2021 CO2 [Moles/Vol] 18.2 mmol/L 22.0-30.0 [facility] Serum or plasma urea nitroge n measurement (mass/volume)Ordered By: Dee Hammonds on 09-29-2021 Urea nitrogen [Mass/Vol] 10 mg/dL 9-23 [facility] Specific gravity Auto test s trip (U) [Rel density]Ordered By: Dee Hammonds on 09-29-2021 Specific gravity (U) [Rel density] 1.019 1.001-1.030 [facility] Troponin I High Sensitivityo n 09-29-2021 Troponin I High Sensitivity 3 pg/mL Normal 0-15 [facility] Comment on above: Result Comment: PERF ORMED BY: [place] [address] PATHOLOGIST FILM PROCESSING SHIFT SUPERVISOR ALIX VARGAS M.D. Performed By: #### C BC, CMP, HS TROP #### [address] Troponin I.cardiac [Mass/vol ume] in Serum or Plasma by High sensitivity methodOrdered By: Dee Hammonds on 09-29-2021 Troponin I.cardiac High sensitivity method [Mass/Vol] 3 pg/mL 0-15 [facility] Urine bacteria detection by automated methodOrdered By: Dee Hammonds on 09-29-2021 Bacteria Auto Ql (U) 1+ None Seen [facility] Urine clarity by refractomet ry automatedOrdered By: Dee Hammonds on 09-29-2021 Clarity Refractometry automated (U) Clear Clear [facility] Urine glucose measurement by automated test strip (mass/volume)Ordered By: Dee Hammonds on 09-29-2021 Glucose Auto test strip (U) [Mass/Vol] Normal mg/dL Normal [facility] Urine hemoglobin detection b y automated test stripOrdered By: Dee Hammonds on 09-29-2021 Hemoglobin Auto test strip Ql (U) Negative Negative [facility] Urine leukocyte esterase det ection by automated test stripOrdered By: Dee Hammonds on 09-29-2021 Leukocyte esterase Auto test strip Ql (U) 1+ Negative [facility] Urobilinogen Auto test strip (U) [Mass/Vol]Ordered By: Dee Hammonds on 09-29-2021 Urobilinogen (U) [Mass/Vol] Normal mg/dL Normal [facility] XR chest 2V*on 09-29-2021 XR chest 2V* [facility] [place] [address] [place] [address] XRay Report Signed Patient: Maude Moore MR#: [id number] 2 : 2005 Acct:[id number] Age/Sex: 16 / F ADM Date: 09/29/21 Loc: ER Room: Type: [facility] ER Attending Dr: Copies to: Dee Hammonds APRN Ordering Provider: Dee Hammonds APRN Date of Service: 09/29/21 XR/XR chest 2V*: Nausea/Vomiting/Diar max Chest 2 views CLINICAL HISTORY: Vomiting since this morning. COMPARISON: None FINDINGS: Heart is normal in size. Lungs are clear. No free air. XR/XR chest 2V* IMPRESSION: NO ACUTE CARDIOPULMONARY ABNORMALITY. Impression dictated by: Aden Alexander Jr., D.O.09/29/2021 5:43 PM Dictation Location: [place] [address] Transcribed By: [facility] 09/29/211742 Dictated By: Aden Alexander Jr, DO 09/29/211742 Signed By: 09/29/21 174 Normal [facility] Yeast detection in urine sed iment by light microscopyOrdered By: Dee Hammonds on 09-29-2021 Yeast LM Ql (Urine sed) Rare [HPF] None Seen [facility] pH Auto test strip (U)Ordere d By: Dee Hammonds on 09-29-2021 pH (U) 8.5 [pH] 5.0-9.0 [facility] ER URINE PROFILEon 2 Bilirubin Ql (U) Negative Normal NEGATIVE [facility] Comment on above: Performed By: #### U MICRO, ERUR, PREGU #### [facility] [address] [address] [address] Deepak Ceballos Clarity (U) CLEAR Normal CLEAR [facility] Comment on above: Performed By: #### U MICRO, ERUR, PREGU #### [facility] [address] [address] [address] Deepak Ceballos Color (U) LT. YELLOW Normal YELLOW [facility] Comment on above: Performed By: #### U MICRO, ERUR, PREGU #### [facility] [address] [address] [address] Deepak DENNIS A micrscopic examination will be performed if indicated. Normal [facility] Comment on above: Performed By: #### U MICRO, ERUR, PREGU #### [facility] [address] [address] [address] Deepak Ceballos Glucose Ql (U) Negative Normal NEGATIVE [facility] Comment on above: Performed By: #### U MICRO, ERUR, PREGU #### [facility] [address] [address] [address] Deepak Ceballos Hemoglobin Ql (U) SMALL Abnormal NEGATIVE [facility] Comment on above: Performed By: #### U MICRO, ERUR, PREGU #### [facility] [address] [place] [address] Dr. Deepak Ceballos Ketones Ql (U) 40 mg/dl Abnormal NEGATIVE [facility] Comment on above: Performed By: #### U MICRO, ERUR, PREGU #### [facility] [address] [address] [address] Deepak Ceballos LEUKOCYTES Negative Normal NEGATIVE [facility] Comment on above: Performed By: #### U MICRO, ERUR, PREGU #### [facility] [address] [address] [address] Deepak Ceballos Nitrite Ql (U) Negative Normal NEGATIVE [facility] Comment on above: Performed By: #### U MICRO, ERUR, PREGU #### [facility] [address] [place] [address] [address] Deepak Ceballos pH (U) 8.5 [pH] Normal 5-9 [facility] Comment on above: Performed By: #### U MICRO, ERUR, PREGU #### [facility] [address] [address] [address] Deepak Ceballos SPEC GRAVITY 1.020 Normal 1.005-<=1.025 [facility] Comment on above: Performed By: #### U MICRO, ERUR, PREGU #### [facility] [address] [address] [address] Deepak Ceballos UA PROTEIN Negative Normal NEGATIVE/ TRACE [facility] Comment on above: Performed By: #### U MICRO, ERUR, PREGU #### [facility] [address] [address] [address] Deepak Ceballos UR MICRO IND INDICATED Normal [facility] Comment on above: Performed By: #### U MICRO, ERUR, PREGU #### [facility] [address] [address] [address] Deepak Ceballos Urobilinogen Qn (U) 0.2 {Sam'U}/dL Normal 0.2 - 1. 0 [facility] Comment on above: Performed By: #### U MICRO, ERUR, PREGU #### [facility] [address] [place] [address] Dr. Deepak Ceballos URon 05-09-2021 , QUAL Negative Normal NEGATIVE [facility] [place] Comment on above: Performed By: #### U MICRO, ERUR, PREGU #### [facility] [address] [address] [address] Deepak Ceballos URINE MICROSCOPIC ONLYon BACTERIA NONE SEEN Normal NONE SEEN [facility] Comment on above: Performed By: #### U MICRO, ERUR, PREGU #### [facility] [address] [place] [address] Dr. Deepak eCballos Bacteria identified Cx Nom (U) NOT INDICATED Normal [facility] Comment on above: Performed By: #### U MICRO, ERUR, PREGU #### [facility] [address] [address] [address] Deepak Ceballos CAST NONE SEEN Normal NONE SEEN [facility] Comment on above: Performed By: #### U MICRO, ERUR, PREGU #### [facility] [address] [address] [address] Deepak Ceballos Crystals LM Nom (Urine sed) NONE SEEN Normal NONE SEEN [facility] Comment on above: Performed By: #### U MICRO, ERUR, PREGU #### [facility] [address] [place] [address] Dr. Deepak Ceballos Epithelial cells LM Ql (Urine sed) FEW Abnormal NONE SEEN /RARE [facility] Comment on above: Performed By: #### U MICRO, ERUR, PREGU #### [facility] [address] [place] [address] Dr. Deepak Ceballos MUCOUS TRACE Abnormal NONE SEEN [facility] Comment on above: Performed By: #### U MICRO, ERUR, PREGU #### [facility] [address] [address] [address] Deepak Ceballos RBC 0-2 Normal 0-2 [facility] Comment on above: Performed By: #### U MICRO, ERUR, PREGU #### [facility] [address] [place] [address] Dr. Deepak Ceballos WBC 0-2 Abnormal NONE SEEN [facility] Comment on above: Performed By: #### U MICRO, ERUR, PREGU #### [facility] [address] [place] [address] Dr. Deepak Ceballos CANNABINOID (THC) CONFIRMATI ON, URINEon 07-14-2020 Cannabinoid Positive Abnormal [facility] Comment on above: Performed By: #### T HCCONF #### [facility] [address] [place] [address] Tramaine Dugan Carboxy THC GC/MS Conf 253 ng/mL Normal Cutoff=10 Th [facility] Comment on above: Performed By: #### T HCCONF #### [facility] [address] [place] [address] Tramaine Dugan CBC AUTO DIFFon 07-10-2020 BASO # 0.0 103/ul Normal 0.0-0.1 [facility] Comment on above: Performed By: #### G BSCX #### [facility] [address] [place] [address] Tramaine Dugan Basophils/100 WBC (Bld) 0.3 % Normal 0.2-2.0 [facility] Comment on above: Performed By: #### G BSCX #### [facility] [address] [place] [address] Tramaine Dugan EO # 0.0 103/ul Normal 0.0-0.7 [facility] Comment on above: Performed By: #### G BSCX #### [facility] [address] [place], [place] [id number] Tramaine Kailee Eosinophils/100 WBC (Bld) 0.1 % Critically low 0.9-7.0 [facility] Comment on above: Performed By: #### G BSCX #### [facility] [address] [place], [place] [address] Tramaine Kailee Erythrocyte distribution width (RBC) [Ratio] 13.3 % Normal 11.0-15.0 [facility] Comment on above: Performed By: #### G BSCX #### [facility] [address] [place] [address] Tramaine Kailee Hematocrit (Bld) [Volume fraction] 25.4 % Critically low 36.0-48.0 [facility] Comment on above: Performed By: #### G BSCX #### [facility] [address] [place] [address] Tramaine Kailee Hemoglobin (Bld) [Mass/Vol] 8.6 g/dL Critically low 12.0-16.0 [facility] Comment on above: Performed By: #### G BSCX #### [facility] [address] [place] [address] Tramaine Kailee IG # 0.10 10e3/ul Critically high 0.00-0.03 [facility] Comment on above: Performed By: #### G BSCX #### [facility] [address] [place] [address] Tramaine Kailee IG % 0.6 % Critically high 0.0-0.5 [facility] Comment on above: Performed By: #### G BSCX #### [facility] [address] [place], [place] [id number] Tramaine Kailee LYMPH # 2.0 103/ul Normal 1.2-3.8 [facility] Comment on above: Performed By: #### G BSCX #### [facility] [address] [place], [place] [address] Tramaine Kailee Lymphocytes/100 WBC (Bld) 12.6 % Critically low 20.5-60.0 [facility] Comment on above: Performed By: #### G BSCX #### [facility] [address] [place], [place] [address] Tramaine Dugan MANUAL DIFF REQ NO Normal [facility] Comment on above: Performed By: #### G BSCX #### [facility] [address] [place], [place] [address] Tramaine Dugan MCH (RBC) [Entitic mass] 31.0 pg Normal 26.7-34.0 [facility] Comment on above: Performed By: #### G BSCX #### [facility] [address] [place], [place] [address] Tramaine Dugan MCHC (RBC) [Mass/Vol] 33.9 g/dL Normal 29.9-35.2 [facility] Comment on above: Performed By: #### G BSCX #### [facility] [address] [place] [address] Tramaine Dugan MCV (RBC) [Entitic vol] 91.7 fL Normal 79.1-95.6 [facility] Comment on above: Performed By: #### G BSCX #### [facility] [address] [place], [place] [address] Tramaine Dugan MONO # 0.8 103/ul Normal 0.3-0.8 [facility] Comment on above: Performed By: #### G BSCX #### [facility] [address] [place] [address] Tramaine Kailee Monocytes/100 WBC (Bld) 5.3 % Normal 1.7-12.0 [facility] Comment on above: Performed By: #### G BSCX #### [facility] [address] [place], [place] [address] Tramaine Chandleren NEUT # 12.6 103/ul Critically high 1.4-6.5 [facility] Comment on above: Performed By: #### G BSCX #### [facility] [address] [place], [place] [address] Tramaine Dugan Neutrophils/100 WBC (Bld) 81.1 % Critically high 43.0-75.0 [facility] Comment on above: Performed By: #### G BSCX #### [facility] [address] [place], [place] [address] Tramaine Chandleren Platelet mean volume (Bld) [Entitic vol] 10.8 fL Normal 9.5-13.5 [facility] Comment on above: Performed By: #### G BSCX #### [facility] [address] [place], [place] [address] Tramaine Kailee PLT 227 103/ul Normal 150-450 [facility] Comment on above: Performed By: #### G BSCX #### [facility] [address] [place], [place] [address] Tramaine Kailee RBC 2.77 106/ul Critically low 3.40-5.30 [facility] [place] Comment on above: Performed By: #### G BSCX #### [facility] [address] [place] [address] Tramaine Kailee WBC 15.5 103/ul Critically high 4.0-11.0 [facility] Comment on above: Performed By: #### G BSCX #### [facility] [address] [place], [place] [address] Tramaine Kailee CBC AUTO DIFFon 07-09-2020 BASO # 0.0 103/ul Normal 0.0-0.1 [facility] Comment on above: Performed By: #### C BC #### [facility] [address] [place], [place] [address] Tramaine Kailee Basophils/100 WBC (Bld) 0.3 % Normal 0.2-2.0 [facility] Comment on above: Performed By: #### C BC #### [facility] [address] [place], [place] [address] Tramaine Kailee EO # 0.1 103/ul Normal 0.0-0.7 [facility] Comment on above: Performed By: #### C BC #### [facility] [address] [place], [place] [address] Tramaine Kailee Eosinophils/100 WBC (Bld) 0.6 % Critically low 0.9-7.0 [facility] Comment on above: Performed By: #### C BC #### [facility] [address] [place] [address] Tramaineval Dugan Erythrocyte distribution width (RBC) [Ratio] 13.3 % Normal 11.0-15.0 [facility] Comment on above: Performed By: #### C BC #### [facility] [address] [place] [address] Tramaine Kailee Hematocrit (Bld) [Volume fraction] 31.1 % Critically low 36.0-48.0 [facility] Comment on above: Performed By: #### C BC #### [facility] [address] [place] [address] Tramaine Kailee Hemoglobin (Bld) [Mass/Vol] 10.5 g/dL Critically low 12.0-16.0 [facility] Comment on above: Performed By: #### C BC #### [facility] [address] [place] [address] Tramaine Kailee IG # 0.08 10e3/ul Critically high 0.00-0.03 [facility] Comment on above: Performed By: #### C BC #### [facility] [address] [place] [address] Tramaine Kailee IG % 0.8 % Critically high 0.0-0.5 [facility] Comment on above: Performed By: #### C BC #### [facility] [address] [place] [address] Tramaine Kailee LYMPH # 2.1 103/ul Normal 1.2-3.8 [facility] Comment on above: Performed By: #### C BC #### [facility] [address] [place], [place] [address] Tramaine Dugan Lymphocytes/100 WBC (Bld) 20.1 % Critically low 20.5-60.0 [facility] Comment on above: Performed By: #### C BC #### [facility] [address] [place] [address] Tramaine Dugan MANUAL DIFF REQ NO Normal [facility] Comment on above: Performed By: #### C BC #### [facility] [address] [place], [place] [address] Tramaineval Dugan MCH (RBC) [Entitic mass] 31.1 pg Normal 26.7-34.0 [facility] Comment on above: Performed By: #### C BC #### [facility] [address] [place], [place] [address] Tramaineval Dugan MCHC (RBC) [Mass/Vol] 33.8 g/dL Normal 29.9-35.2 [facility] Comment on above: Performed By: #### C BC #### [facility] [address] [id number] Tramaine Kailee MCV (RBC) [Entitic vol] 92.0 fL Normal 79.1-95.6 [facility] Comment on above: Performed By: #### C BC #### [facility] [address] [place] [address] Tramaine Kailee MONO # 0.7 103/ul Normal 0.3-0.8 [facility] Comment on above: Performed By: #### C BC #### [facility] [address] [place], [place] [address] Tramaine Kailee Monocytes/100 WBC (Bld) 6.4 % Normal 1.7-12.0 [facility] Comment on above: Performed By: #### C BC #### [facility] [address] [place], [place] [address] Tramaine Kailee NEUT # 7.5 103/ul Critically high 1.4-6.5 [facility] [place] Comment on above: Performed By: #### C BC #### [facility] [address] [place], [place] [address] Tramaine Kailee Neutrophils/100 WBC (Bld) 71.8 % Normal 43.0-75.0 [facility] Comment on above: Performed By: #### C BC #### [facility] [address] [place], [place] [address] Tramaine Kailee Platelet mean volume (Bld) [Entitic vol] 11.0 fL Normal 9.5-13.5 [facility] Comment on above: Performed By: #### C BC #### [facility] [address] [place], [place] [address] Tramaine Dugan PLT 274 103/ul Normal 150-450 [facility] Comment on above: Performed By: #### C BC #### [facility] [address] [place], [place] [address] Tramaine Dugan RBC 3.38 106/ul Critically low 3.40-5.30 [facility] [place] Comment on above: Performed By: #### C BC #### [facility] [address] [place], [place] [address] Tramaine Dugan WBC 10.4 103/ul Normal 4.0-11.0 [facility] Comment on above: Performed By: #### C BC #### [facility] [address] [place] [address] Tramaine Dugan Covid-19 PCR (CVDTB)on 06-23 Sample Type Test performed using RT-PCR from a nasopharyngeal collected specimen. Normal [facility] Comment on above: Performed By: #### C VDTBH #### [facility] [address] [place] [address] Tramaine Dugan SARS-CoV-2 (COVID-19) RNA FANNY+probe Ql (Unsp spec) Not detected Normal NOT DETECTED [facility] Comment on above: Result Comment: This test is not yet approved or cleared by the [place] FDA. When there are no FDA-approved or cleared tests available, and other criteria are met, FDA can make tests available under an emergency access mechanism called an Emergency Use Authorization (EUA). The EUA for this test is supported by the [place] Captain of Health and Human Service's (HHS's) declaration that circumstances exist to justify the emergency use of in vitro diagnostics for the detection and/or diagnosis of the virus that causes COVID-19. This EUA will remain in effect (meaning this test can be used) for the duration of the COVID-19 declaration justifying emergency of IVDs, unless it is terminated or revoked by FDA (after which the test may no longer be used). When diagnostic testing is negative, the possibility of a false negative should be considered in the context of a patient's recent exposures and the presence of clinical signs and symptoms consistent with SARS-CoV-2. Performed By: #### C VDTBH #### [facility] [address] [place] [address] Tramaineval Dugan DRUG SCREEN RAPID (URINE)on 07-09-2020 AMP Negative Normal NEGATIVE [facility] Comment on above: Performed By: #### D RUGRPD #### [facility] [address] [place] [address] Tramaine Kailee BAR Negative Normal NEGATIVE [facility] Comment on above: Performed By: #### D RUGRPD #### [facility] [address] [place] [address] Tramaine Kailee BUP Negative Normal NEGATIVE [facility] Comment on above: Performed By: #### D RUGRPD #### [facility] [address] [place] [address] Tramaine Kailee BZO Negative Normal NEGATIVE [facility] Comment on above: Performed By: #### D RUGRPD #### [facility] [address] [place] [address] Tramaine Kailee GRAYSON Negative Normal NEGATIVE [facility] Comment on above: Performed By: #### D RUGRPD #### [facility] [address] [place], [place] [address] CUT-OFFS SEE BELOW Normal [facility] Comment on above: Result Comment: AMP (Amphetamine): 500ng/mL, BAR (Barbituates): 200 ng/mL, BZO (Benzodiazepines): 150 ng/mL, BUP (Buprenorphine): 10 ng/mL, GRAYSON (Cocaine): 150 ng/mL, mAMP (Methamphetamine): 500 ng/mL, MTD (Methadone): 200 ng/mL, OPI (Opiates): 100 ng/mL, OXY (Oxycodone): 100 ng/mL, PCP (Phencyclidine): 25 ng/mL, PPX (Propoxyphene): 300 ng/mL, THC (Cannabinoids): 50 ng/mL, TCA (Trycyclic Antidepressants): 300 ng/mL Performed By: #### D RUGRPD #### [facility] [address] [place] [address] Kailee DRUG CUT HEADER DRUG CLASS TEST SYSTEM CUT-OFF CONCENTRATIONS ARE FOLLOWS: Normal [facility] Comment on above: Performed By: #### D RUGRPD #### [facility] [address] [place] [address] Tramaine Kailee mAMP Negative Normal NEGATIVE [facility] Comment on above: Performed By: #### D RUGRPD #### [facility] [address] [place] [address] Tramaine Kailee MTD Negative Normal NEGATIVE [facility] Comment on above: Performed By: #### D RUGRPD #### [facility] [address] [place] [address] Tramaine Kailee OPI Negative Normal NEGATIVE [facility] Comment on above: Performed By: #### D RUGRPD #### [facility] [address] [place] [address] Tramaine Kailee OXY Negative Normal NEGATIVE [facility] Comment on above: Performed By: #### D RUGRPD #### [facility] [address] [place] [address] Tramaine Kailee PCP Negative Normal NEGATIVE [facility] Comment on above: Performed By: #### D RUGRPD #### [facility] [address] [place] [address] Tramaine Kailee PPX Negative Normal NEGATIVE [facility] Comment on above: Performed By: #### D RUGRPD #### [facility] [address] [place] [address] Tramaine Kailee TCA Negative Normal NEGATIVE [facility] Comment on above: Performed By: #### D RUGRPD #### [facility] [address] [place] [address] Tramaine Kailee THC Positive Abnormal NEGATIVE [facility] Comment on above: Result Comment: send out for confirmation per Tania in [facility] Performed By: #### D RUGRPD #### [facility] [address] [place] [address] Tramaine Dugan RAPID COVID-19 ANTIGENon EUA Statement SEE BELOW Normal [facility] Comment on above: Result Comment: This test has not been FDA cleared or approved, but has been authorized by the FDA under an Emergency Use Authorization (EUA) for use by authorized laboratories certified under CLIA that meet the requirements to perform moderate or high complexity testing. This test has been authorized only for the detection of proteins from SARS-CoV-2, not for any other viruses or pathogens. The emergency use of this test is authorized for the duration of the declaration that circumstances exist justifying the authorization of emergency use of in vitro diagnostic tests for detection and/or diagnosis of Covid-19 under section 564(b)(1) of the Act, 21 U.S.C. 360bbb-3(b)(1), unless the declaration is terminated or authorization is revoked sooner. Performed By: #### C VDAG #### [facility] [address] [place] [address] Tramaine Dugan SARS-CoV-2 (COVID-19) RNA FANNY+probe Ql (Unsp spec) Negative Normal NEGATIVE [facility] Comment on above: Result Comment: Nega tive results are presumptive. They do not preclude infection and should not be used as the sole basis for treatment decisions. Additional confirmatory testing by a molecular method should be considered. Performed By: #### C VDAG #### [facility] [address] [place] [address] Tramaine Dugan TYPE AND SCREENon 07-09-2020 TYPE AND SCREEN Negative Normal [facility] [place] Comment on above: Performed By: #### T NS #### [facility] [address] [place] [address] GROUP B STREP CULTUREon S. agalactiae Ag Ql (Unsp spec) Culture Observations: NEGATIVE FOR GROUP B STREPTOCOCCUS Normal [facility] Comment on above: Performed By: #### G BSCX #### [facility] [address] [place] [address] Vital Signs Date Time Vital Sign Value Performing Clinician Traec andersony 09-29-2021 18:20-0400 Diastolic blood pressure 58 mm[Hg] PHYSICIAN NO [facility] 09-29-2021 18:20-0400 Heart rate 89 /min PHYSICIAN NO [facility] 09-29-2021 18:20-0400 Respiratory rate 16 /min PHYSICIAN NO [facility] 09-29-2021 18:20-0400 SaO2% (BldA) [Mass fraction] 98 % PHYSICIAN NO [facility] 09-29-2021 18:20-0400 Systolic blood pressure 101 mm[Hg] PHYSICIAN NO [facility] 09-29-2021 14:06-0400 Body height 160.02 cm PHYSICIAN NO [facility] 09-29-2021 14:06-0400 Body temperature 97.6 [degF] PHYSICIAN NO [facility] 09-29-2021 14:06-0400 Body weight 51 kg PHYSICIAN NO [facility] Encounters Encounter Date Encounter Type Care Provider Facility Start: 05-20-2023 End: 05-20-2023 ambulatory GALDINO STEFAN Not Available Start: 05-08-2023 End: 05-08-2023 Emergency department patient visit TANA HYDE [facility] Start: 05-06-2023 End: 05-06-2023 ambulatory PHILOMENA BRANDI Not Available Start: 04-16-2023 End: 04-16-2023 ambulatory GALDINO STEFAN Not Available Start: 04-14-2023 End: 04-15-2023 [facility] Start: 02-10-2023 End: 02-10-2023 ambulatory PHILOMENA BRANDI Not Available Start: 01-22-2023 End: 01-22-2023 ambulatory GALDINO STEFAN Not Available Start: 09-29-2021 End: 09-29-2021 Emergency department patient visit PHYSICIAN NO [facility] Facility:[facility] Start: 09-29-2021 End: 09-29-2021 Emergency department patient visit PHYSICIAN NO [facility] Start: 05-09-2021 End: 05-09-2021 ambulatory BONNIE CACERES Facility:[facility] Start: 05-09-2021 End: 05-09-[address] NONE LISTED REQUEST Facility:[facility] Start: 2020 End: [address] NONE LISTED REQUEST Facility:[facility] Start: 07-09-2020 End: 07-11-2020 Evaluation and management of inpatient DR ESTEFANY AGRAWAL Facility:[facility] Start: 06-27-2020 End: 06-27-[address] PHILOMENA PAZ Facility:[facility] Procedures Date Procedure Procedure Detail Performing Clinician Start: 09-29-2021 Plain chest X-ray PHYSI SILVERIO NO FAMILY Start: 07-09-2020 Delivery of Products of Conception, External Approach DR ESTEFANY AGRAWAL Start: 07-09-2020 Division of Female P erineum, External Approach DR ESTEFANY AGRAWAL Start: 07-09-2020 Introduction of Othe r Hormone into Peripheral Vein, Percutaneous Approach DR ESTEFANY AGRAWAL Plan of Treatment Date Care Activity Detail Author Patient Education Urinary Tract Infection, Adult ED [facility] Work Phone: Patient referral [facility] Work Phone: Payers Date Payer Category Payer Self-pay 2003 Unknown [id number] 2.16.8 [id number] 2003 Unknown [id number] 2.16.8 [id number] 2003 Unknown [id number] 2.16.84 [id number] 2003 Unknown [id number] 2.16.84 [id number] 2003 Unknown [id number] 2.16.84 [id number] 2003 Unknown [id number] 2.16.840 .[id number] 2003 Unknown [id number] 2.16.840 .[id number] 1979 Unknown [id number] 2.16.84 [id number] 1979 Unknown [id number] 2.16.84 [id number] 1979 Unknown [id number] 2.16.84 [id number] 1979 Unknown [id number] 2.16.84 [id number] 1979 Unknown [id number] 2.16.84 [id number] 1959 Unknown [id number] Unknown [id number] 2.16.8 [id number] Social History Date Type Detail Facility Start: 09-29-2021 Tobacco smoking stat us IAIS Ex-smoker (finding) [facility] Start: 2005 Sex Assigned At Female F [facility] Evaluation note Note Date & Type Note Facility Evaluation note No assessment information availa ble [facility] Work Phone: Hospital Discharge instructions Note Date & Type Note Facility Hospital Discharge instructions Additional Instructions Push fluids Rest Zofran if needed for nausea vomiting Take antibiotic as instructed until gone Take Diflucan as instructed Return here if any problems persist or worsen Follow-up with your doctor in the next 3 days Avoid alcohol [facility] Work Phone: Summary Purpose Family History No Family History Records FoundNo Family History Records FoundNo Family History Records FoundNo Family History Records Found Advance Directives No Advanced Directives Records Found Advance Directive Response Recorded Date/ Time Advance Directives No September 29, 2 022 3:26pm Chief Complaint and Reason for Visit Chief Complaint weakness, trouble br eathing Additional Source Comments INFORMATION SOURCE (unrecogn ized section and content) DATE CREATED AUTHOR [facility]/10/2021 [facility] DATE CREATED AUTHOR AUTHOR'S ORGANIZ ATION 03/29/2022 [facility] DATE CREATED AUTHOR AUTHOR'S ORGANIZ ATION 05/09/2023 [facility] DATE CREATED AUTHOR AUTHOR'S ORGANIZ ATION 05/22/2023 [facility] EPIC Care Teams (unrecognized sec tion and content) Team Status: Inactive Member Role Status Dates PHYSICIAN NO FAMILY Primary Care Provider Active Chacorta Pino Jr, MD Emergency Provider Active Team Status: Active Member Role Status Dates PHYSICIAN NO FAMILY Primary Care Provider Active Goals (unrecognized section and content) Goals may be documented in a n alternate section FOR RECORDS PERTAINING TO PATIENTS WHO ARE OR HAVE BEEN ENROLLED IN A CHEMICAL DEPENDENCY/SUBSTANCEABUSE PROGRAM, SOME INFORMATION MAY BE OMITTED. This clinical summary was aggregated from multiple sources. Caution should be exercised in using it in the provision of clinical care. This summary normalizes information from multiple sources, and as a consequence, information in this document may materially change the coding, format and clinical context of patient data. In addition, data may be omitted in some cases. CLINICAL DECISIONS SHOULD BE BASED ON THE PRIMARY CLINICAL RECORDS. [facility] [employer] [facility]. provides no warranty or guarantee of the accuracy or completeness of information in this document.
== END 2023-05-27 19:22 | disposition home or self-care (01) ==
LOC: LAB 19:21
PROVIDERS: Visit Provider Obstetrics & Gynecology
DX: Z34.93 Encounter for supervision of normal pregnancy, unspecified, third trimester (principal)
CPT/HCPCS: 87081

== ENCOUNTER 2023-05-28 07:28 | Outpatient (RCR) | payer OTHER, SELFPAY ==
[2023-05-28] MEDS: FERRIC CARBOXYMALTOSE 750 MG in 0.9 % SODIUM CHLORIDE 250 ML 1060 MG IV (13:38)
[2023-05-28 13:39] VITALS: BP 130/81; PULSE 88; TEMP 36.6; O2SAT 96
--- NOTE | 2023-05-28 13:42 | PC.NURSE ---
1323: Pt. to [facility] amb for iron infusion. Seated in recliner. VSS. IV initiated. Pt. tolerated without c/o. Drinking gatorade. Denies needs. IV Injectafer initiated at this time.
--- NOTE | 2023-05-28 14:19 | PC.NURSE ---
1412: Iron completed at this time. Pt. without s&s of adverse reaction. IV d/c'd, pressure to site. D/c'd amb to home.
== END 2023-06-23 23:59 | disposition home or self-care (01) ==
LOC: INF 07:28
PROVIDERS: Visit Provider Obstetrics & Gynecology
DX: O99.019 Anemia complicating pregnancy, unspecified trimester (principal); D50.9 Iron deficiency anemia, unspecified; Z3A.00 Weeks of gestation of pregnancy not specified
CPT/HCPCS: 96365; J1439

== ENCOUNTER 2023-05-29 07:14 | Outpatient (OUT) | payer OTHER, SELFPAY ==
--- OUTSIDE RECORDS SUMMARY | 2023-05-29 07:18 | XMS_ITS | CCD ---
Author Organization [facility] Care Team Providers Care Supervisor Grips Name Role Phone NGHIA, DR ALLISON Attending [...] Consulting Unavailable KARASIK, DR ALLISON Admitting Unavailable KARASISlava, DR ALLISON Attending Unavailable NO FAMILY, PHYSICIAN Primary Care Provider Unava ilable MD Chacorta Pino Jr Emergency Provider NO FAMILY, PHYSICIAN Primary Care Unavailable Chacorta Pino Jr Attending Unavailable Chacorta Pino Jr Admitting Unavailable TANA HYDE Attending Unavailab le NO PCP, NO PCP Primary Care Unavailable FRIBALJINDER, MIGUEL S Admitting Unavailable BOUCHRAES, MIGUEL S Attending Unavailable GALDINO AVILES Attending Unavailable PHILOMENA PAZ Attending Unavailable GALDINO AVILES Attending Unavailable PHILOMENA PAZ Attending Unavailable PHILOMENA PAZ Attending Unavailable Allergies Allergy Classification Reported Allergen(s) Allergy Type Date of Onset Reaction(s) Facility (2 sources) Penicillins; Translations: [PENICILLINS] Drug allergy (disorder) 11-29-2013 [facility] Repository (1 source) Penicillins Drug allergy (disorder) 09-29-2021 [facility] Repository Medications Current Medications Medication Drug [...] 04-15-2023 Potassium [Moles/Vol] 3.1 mmol/L Low 3.5-5.0 [facility] Comment on above: Performed By: #### 2 823-3 #### [facility] ([id number]) [address] [place] [address] 52525 AMYLASEon 04-14-2023 Amylase [Catalytic activity/Vol] 68 U/L Normal 28-100 [facility] Comment on above: Performed By: #### C RENETTA ROMO, 3040-3, 8-8 #### [facility] ([id number]) [address] [place] [address] 27233 COMPLETE BLOOD COUNTon 04-14 Erythrocyte distribution width (RBC) [Ratio] 14.7 % Normal 11.5-15.0 [facility] Comment on above: Performed By: #### C RENETTA ROMO, 3040-3, 8-8 #### [facility] ([id number]) [address] [place] [address] 97989 Hematocrit (Bld) [Volume fraction] 29.8 % Low 35-47 [facility] Comment on above: Performed By: #### Sukumar ROMO CMP, 3, 1797-09 #### [facility] ([id number]) [address] [place] [address] 66475 Hemoglobin (Bld) [Mass/Vol] 10.4 g/dL Low 11.7-15.5 [facility] Comment on above: Performed By: #### Sukumar ROMO [facility], 3039-04, 1797-09 #### [facility] ([id number]) [address] [place] [address] 62541 MCH (RBC) [Entitic mass] 31.3 pg Normal 27-34 [facility] Comment on above: Performed By: #### Sukumar ROMO CMP, 3, 1797-09 #### [facility] ([id number]) [address] [place] [address] 60192 MCHC (RBC) [Mass/Vol] 34.8 g/dL Normal 32-36 [facility] Comment on above: Performed By: #### Sukumar ROMO CMP, 3039-04, 1797-09 #### [facility] ([id number]) [address] [place] [address] 39619 MCV (RBC) [Entitic vol] 90 fL Normal 80-100 [facility] Comment on above: Performed By: #### Sukumar ROMO CMP, 3039-04, 1797-09 #### [facility] ([id number]) [address] [place] [address] 97122 Platelet mean volume (Bld) [Entitic vol] 8.2 fL Normal 7-12 [facility] Comment on above: Performed By: #### Sukumar ROMO CMP, 3039-04, 1797-09 #### [facility] ([id number]) [address] [place] [address] 42133 Platelets (Bld) [#/Vol] 335 10*3/uL Normal 150-450 [facility] Comment on above: Performed By: #### C BC, CMP, 0-3, 1797-09 #### [facility] ([id number]) [address] [place] [address] 77403 RBC COUNT 3.31 X10E12/L Low 3.80-5.20 [facility] Comment on above: Performed By: #### Sukumar ROMO, CMP, 3, 1797-09 #### [facility] ([id number]) [address] [place] [address] 95849 WBC (Bld) [#/Vol] 11.7 10*3/uL High 4.0-11.0 [facility] Comment on above: Performed By: #### Sukumar ROMO, CMP, 3, 1797-09 #### [facility] ([id number]) [address] [place] [address] 95893 COMPREHENSIVE METABOLIC PANE Jozef 04-14-2023 Albumin [Mass/Vol] 3.5 g/dL Normal 3.2-5.3 [facility] Comment on above: Performed By: #### Sukumar ROMO, CMP, 3, 1797-09 #### [facility] ([id number]) [address] [place] [address] 55780 ALP [Catalytic activity/Vol] 78 U/L Normal 39-130 [facility] Comment on above: Performed By: #### Sukumar BC, CMP, 3, 1797-09 #### [facility] ([id number]) [address] [place] [address] 12098 ALT [Catalytic activity/Vol] 11 U/L Normal 0-31 [facility] Comment on above: Performed By: #### Sukumar BC, CMP, 3, 1797-09 #### [facility] ([id number]) [address] [place] [address] 99518 Anion gap [Moles/Vol] 10 mmol/L Normal 5-15 [facility] Comment on above: Performed By: #### Sukumar ROMO CMP, 3039-04, 1797-09 #### [facility] ([id number]) [address] [place] [address] 10209 AST [Catalytic activity/Vol] 19 U/L Normal 0-41 [facility] Comment on above: Performed By: #### Sukumar ROMO [facility], 3039-04, 1797-09 #### [facility] ([id number]) [address] [place] [address] 85705 Bilirubin [Mass/Vol] 0.5 mg/dL Normal 0.3-1.2 [facility] Comment on above: Performed By: #### Sukumar ROMO CMP, 3039-04, 1797-09 #### [facility] ([id number]) [address] [place] [address] 62956 Calcium [Mass/Vol] 8.6 mg/dL Normal 8.5-10.5 [facility] Comment on above: Performed By: #### Sukumar ROMO [facility], 3039-04, 1797-09 #### [facility] ([id number]) [address] [place] [address] 36829 Chloride [Moles/Vol] 107 mmol/L Normal 98-109 [facility] Comment on above: Performed By: #### Sukumar ROMO CMP, 3039-04, 1797-09 #### [facility] ([id number]) [address] [place] [address] 38579 CO2 [Moles/Vol] 16 mmol/L Low 22-32 [facility] Comment on above: Performed By: #### Sukumar ROMO CMP, 3039-04, 1797-09 #### [facility] ([id number]) [address] [place] [address] 86086 Creatinine [Mass/Vol] 0.54 mg/dL Normal 0.40-1.00 [facility] Comment on above: Result Comment: METH OD TRACEABLE TO IDMS STANDARD Performed By: #### Sukumar ROMO CMP, 3, 1797-09 #### [facility] ([id number]) [address] [place] [address] 72854 eGFR (CKD-EPI) NON-RACE DEPENDENT >90 Normal >59 [facility] Comment on above: Result Comment: Reported eGFR is based on the CKD-EPI 2020 equation that does not use a race coefficient. Performed By: #### Sukumar ROMO CMP, 3, 1797-09 #### [facility] ([id number]) [address] [place] [address] 78962 Glucose [Mass/Vol] 113 mg/dL High 65-99 [facility] Comment on above: Performed By: #### Sukumar ROMO [facility], 3039-04, 1797-09 #### [facility] ([id number]) [address] [place] [address] 50882 Potassium [Moles/Vol] 2.9 mmol/L Low 3.5-5.0 [facility] Comment on above: Performed By: #### Sukumar ROMO CMP, 3, 1797-09 #### [facility] ([id number]) [address] [place] [address] 53440 Protein [Mass/Vol] 7.3 g/dL Normal 6.0-8.0 [facility] Comment on above: Performed By: #### Sukumar ROMO CMP, 3039-04, 1797-09 #### [facility] ([id number]) [address] [place] [address] 91867 Sodium [Moles/Vol] 133 mmol/L Low 134-146 [facility] Comment on above: Performed By: #### Sukumar ROMO CMP, 3, 1797-09 #### [facility] ([id number]) [address] [place] [address] 36999 Urea nitrogen [Mass/Vol] 6 mg/dL Normal 5-23 [facility] Comment on above: Performed By: #### C BC, [facility], 3040-3, 1798-8 #### [facility] ([id number]) [address] [place] [address] 40157 DRUG SCREEN, URINEon 024 AMPHETAMINE/METHAMP Negative Normal NEG [facility] Comment on above: Result Comment: AMPH /METH screening cut off = 1000 ng/mL Performed By: #### D BREEN #### [facility] ([id number]) [address] [place] [address] 03315 BARBITURATES Negative Normal NEG [facility] Comment on above: Result Comment: Emelyn iturates screening cut off value = 200 ng/mL Performed By: #### D BREEN #### [facility] ([id number]) [address] [place] [address] 40360 BENZODIAZEPINES Negative Normal NEG [facility] Comment on above: Result Comment: Bryan odiazepines screening cut off value = 200 ng/mL Performed By: #### D BREEN #### [facility] ([id number]) [address] [place] [address] 37358 CANNABINOIDS Positive Abnormal NEG [facility] Comment on above: Result Comment: Conf irmation available upon request. Cannabinoids/THC screening cut off value = 50 ng/mL Performed By: #### D BREEN #### [facility] ([id number]) [address] [place] [address] 84851 COCAINE METABOLITE Negative Normal NEG [facility] Comment on above: Result Comment: Coca ine screening cut off value = 300 ng/mL Performed By: #### D BREEN #### [facility] ([id number]) [address] [place] [address] 45633 ECSTASY Negative Normal NEG [facility] Comment on above: Result Comment: Ecst asy screening cut off value = 500 ng/mL This report is intended for use in clinical monitoring or management of patients. Performed By: #### D BREEN #### [facility] ([id number]) [address] [place] [address] 66031 METHADONE Negative Normal NEG [facility] Comment on above: Result Comment: Meth adone screening cut off value = 300 ng/mL. Performed By: #### D BREEN #### [facility] ([id number]) [address] [place] [address] 12412 OPIATES Negative Normal NEG [facility] Comment on above: Result Comment: Opia melissa screening cut off value = 300 ng/mL NOTE: This test is used for the detection of codeine, hydrocodone (>1000 ng/mL), morphine and hydromorphone (>900 ng/mL) in urine. Performed By: #### D BREEN #### [facility] ([id number]) [address] [place] [address] 95523 OXYCODONE Negative Normal NEG [facility] Comment on above: Result Comment: Oxyc odone screening cut off value = 300 ng/mL NOTE: This test is used for the detection of oxycodone and oxymorphone in urine. Performed By: #### D BREEN #### [facility] ([id number]) [address] [place] [address] 73267 PHENCYCLIDINE Negative Normal NEG [facility] Comment on above: Result Comment: Phen cyclidine screening cut off value = 25 ng/mL Performed By: #### D BREEN #### [facility] ([id number]) [address] [place] [address] 30500 LIPASEon 04-14-2023 Lipase [Catalytic activity/Vol] 29 U/L Normal 17-40 [facility] Comment on above: Performed By: #### C BC, CMP, 3040-3, 1798-8 #### [facility] ([id number]) [address] [facility] [place] [facility], [place] [address] SARS/FLU A+B/RSV by NAAT/Mol justine 04-14-2023 SARS/FLU A+B/RSV by NAAT/Molecular FLU A [...] operators who are performing tests using either [employer] or [employer] systems and is limited to laboratories that [...] repeat. Fact Sheet for Healthcare Providers: https://www.fda.gov/ media/091812/downloa d Fact Sheet for Patients: https://www.fda.gov/ media/547911/downloa d Normal [facility] Comment on above: Performed By: #### C OVFLR #### [facility] ([id number]) [address] [place] [address] [place] [address] URINALYSISon 04-14-2023 Amorphous sediment LM Ql (Urine sed) PRESENT Abnormal NONE [facility] Comment on above: Performed By: #### U A #### [facility] ([id number]) [address] [place] [address] 12299 Bilirubin Ql (U) Negative Normal NEG [facility] Comment on above: Performed By: #### U A #### [facility] ([id number]) [address] [place] [address] 47551 BLOOD/HGB Negative Normal NEG [facility] Comment on above: Performed By: #### U A #### [facility] ([id number]) [address] [place] [address] [place] [address] Color (U) YELLOW Normal YELLOW [facility] Comment on above: Performed By: #### U A #### [facility] ([id number]) [address] [place] [address] [place] [address] Glucose Ql (U) Negative Normal NEG [facility] Comment on above: Performed By: #### U A #### [facility] ([id number]) [address] [place] [address] [place] [address] Ketones Ql (U) >80 Abnormal NEG [facility] Comment on above: Performed By: #### U A #### [facility] ([id number]) [address] [place] [address] [place] [address] Leukocyte esterase Test strip Ql (U) Negative Normal NEG [facility] Comment on above: Performed By: #### U A #### [facility] ([id number]) [address] [place] [address] [place] [address] Nitrite Ql (U) Negative Normal NEG [facility] Comment on above: Performed By: #### U A #### [facility] ([id number]) [address] [place] [address] 88423 pH (U) 8.5 [pH] Normal 5.0-8.5 [facility] Comment on above: Performed By: #### U A #### [facility] ([id number]) [address] [place] [address] 71455 Protein Ql (U) Trace Abnormal NEG [facility] Comment on above: Result Comment: Not confirmed. Interpret positive result with caution due to alkaline pH. Suggest quantitative Urine Protein be tested. Performed By: #### U A #### [facility] ([id number]) [address] [place] [address] 04513 R.B.CELLS 0 /hpf Normal 0-5 [facility] Comment on above: Performed By: #### U A #### [facility] ([id number]) [address] [place] [address] 83151 Specific gravity (U) [Rel density] 1.020 Normal 1.003-1.035 [facility] Comment on above: Performed By: #### U A #### [facility] ([id number]) [address] [place] [address] 41149 SQUAMOUS EPITHELIUM 3 /hpf Normal 0-5 [facility] Comment on above: Performed By: #### U A #### [facility] ([id number]) [address] [place] [address] 99314 TURBIDITY HAZY Abnormal CLEAR [facility] Comment on above: Performed By: #### U A #### [facility] ([id number]) [address] [place] [address] 89350 Urobilinogen Qn (U) 0.2 {Sam'U}/dL Normal <1.1 [facility] Comment on above: Performed By: #### U A #### [facility] ([id number]) [address] [place] [address] 08423 W.B.CELLS 2 /hpf Normal 0-5 [facility] Comment on above: Performed By: #### U A #### [facility] ([id number]) [address] [place] [address] 30193 Albumin [Mass/volume] in Ser um or PlasmaOrdered By: Dee Hammonds on 09-29-2021 Albumin [Mass/Vol] 4.9 g/dL 3.2-5.5 [facility] Automated epithelial cells c ount in urine sediment (number/area)Ordered By: Dee Hammonds on 09-29-2021 Epithelial cells Auto (Urine sed) [#/Area] 3-4 [HPF] 0-2 [facility] Automated erythrocytes count in urine sediment (number/area)Ordered By: Dee Hammonds on 09-29-2021 RBC Auto (Urine sed) [#/Area] 0-1 [HPF] 0-4 [facility] Automated leukocytes count i n urine sediment (number/area)Ordered By: Dee Hammonds on 09-29-2021 WBC Auto (Urine sed) [#/Area] 0-1 [HPF] 0-4 [facility] Basophils Auto (Bld) [#/Vol] Ordered By: Dee Hammonds on 09-29-2021 Basophils (Bld) [#/Vol] 0.0 10*3/uL 0.0-0.1 [facility] Basophils/100 WBC Auto (Bld) Ordered By: Dee Hammonds on 09-29-2021 Basophils/100 WBC (Bld) 0.3 % . [facility] Bilirubin Test strip Ql (U)O rdered By: Dee Hammonds on 09-29-2021 Bilirubin Ql (U) Negative Negative [facility] Blood hemoglobin measurement (mass/volume)Ordered By: Dee Hammonds on 09-29-2021 Hemoglobin (Bld) [Mass/Vol] 12.0 g/dL 12.0-16.0 [facility] Blood leukocytes automated c ount (number/volume)Ordered By: Dee Hammonds on 09-29-2021 WBC (Bld) [#/Vol] 10.3 10*3/uL 4.5-13.5 [facility] Color Auto (U)Ordered By: Sergey Hammonds on 09-29-2021 Color (U) Yellow Yellow [facility] Complete Blood Count Auto Di ffon 09-29-2021 Basophils (Bld) [#/Vol] 0.0 10*3/uL Normal 0.0-0.1 [facility] Comment on above: Result Comment: PERF ORMED BY: [place] [address] PATHOLOGIST TELEGRAPH PRINTER MECHANIC ALIX VARGAS M.D. Performed By: #### C BC, CMP, HS TROP #### [facility] [address] [place] [address] Basophils/100 WBC (Bld) 0.3 % Normal . [facility] Comment on above: Performed By: #### C BC, CMP, HS TROP #### [facility] [address] [place] [address] [place] Eosinophils (Bld) [#/Vol] 0.0 10*3/uL Normal 0.0-0.7 [facility] Comment on above: Performed By: #### C BC, CMP, HS TROP #### [place] [address] [place] Eosinophils/100 WBC (Bld) 0.0 % Normal . [facility] Comment on above: Performed By: #### C BC, CMP, HS TROP #### [facility] [address] [place] [address] Erythrocyte distribution width (RBC) [Ratio] 18.9 % High 11.9-15.3 [facility] Comment on above: Performed By: #### C BC, CMP, HS TROP #### [facility] [address] [place] [address] Hematocrit (Bld) [Volume fraction] 36.9 % Normal 36.0-46.0 [facility] Comment on above: Performed By: #### C BC, CMP, HS TROP #### [address] Hemoglobin (Bld) [Mass/Vol] 12.0 g/dL Normal 12.0-16.0 [facility] Comment on above: Performed By: #### C BC, CMP, HS TROP #### [address] Lymphocytes (Bld) [#/Vol] 0.6 10*3/uL Low 1.20-4.8 [facility] Comment on above: Performed By: #### C BC, CMP, HS TROP #### [address] Lymphocytes/100 WBC (Bld) 5.7 % Normal . [facility] Comment on above: Performed By: #### C BC, CMP, HS TROP #### [address] MCH (RBC) [Entitic mass] 27.1 pg Normal 25.0-35.0 [facility] Comment on above: Performed By: #### C BC, CMP, HS TROP #### [address] MCV (RBC) [Entitic vol] 83.5 fL Normal 78-102 [facility] Comment on above: Performed By: #### C BC, CMP, HS TROP #### [address] Mean Corpuscular HGB Conc 32.5 g/dL Normal 31.0-37.0 [facility] Comment on above: Performed By: #### C BC, CMP, HS TROP #### [address] Monocytes (Bld) [#/Vol] 0.2 10*3/uL Normal 0.1-1.00 [facility] Comment on above: Performed By: #### C BC, CMP, HS TROP #### [address] [place] [address] [place] Monocytes/100 WBC (Bld) 1.9 % Normal . [facility] Comment on above: Performed By: #### C BC, CMP, HS TROP #### [facility] [address] [place] [phone] [place] Neutrophils (Bld) [#/Vol] 9.4 10*3/uL High 1.2-7.7 [facility] Comment on above: Performed By: #### C BC, CMP, HS TROP #### [facility] [address] [place] [address] [place] Neutrophils/100 WBC (Bld) 92.1 % Normal . [facility] Comment on above: Performed By: #### C BC, CMP, HS TROP #### [facility] [address] [place] [address] [place] Nucleated RBC/100 WBC (Bld) [Ratio] 0.0 % Normal 0-0.5 [facility] Comment on above: Performed By: #### C BC, CMP, HS TROP #### [facility] [address] [place] [address] [place] Platelet mean volume (Bld) [Entitic vol] 8.4 fL Normal 6.3-10.7 [facility] Comment on above: Performed By: #### C BC, CMP, HS TROP #### [facility] [address] [place] [phone] [place] Platelets (Bld) [#/Vol] 428 10*3/uL Normal 150-450 [facility] Comment on above: Performed By: #### C BC, CMP, HS TROP #### [facility] [address] [place] [address] [place] RBC (Bld) [#/Vol] 4.42 10*6/uL Normal 4.10-5.10 [facility] Comment on above: Performed By: #### C BC, CMP, HS TROP #### [facility] [address] [place] [address] [place] WBC (Bld) [#/Vol] 10.3 10*3/uL Normal 4.5-13.5 [facility] Comment on above: Performed By: #### C BC, CMP, HS TROP #### [facility] [address] Comprehensive Metabolic Pane jozef 09-29-2021 Albumin [Mass/Vol] 4.9 g/dL Normal 3.2-5.5 [facility] Comment on above: Performed By: #### C BC, CMP, HS TROP #### [facility] [address] Albumin/Globulin [Mass ratio] 1.5 {ratio} Normal [facility] Comment on above: Performed By: #### C BC, CMP, HS TROP #### [facility] [address] ALP [Catalytic activity/Vol] 50 U/L Normal 32-92 [facility] Comment on above: Performed By: #### C BC, CMP, HS TROP #### [facility] [address] ALT [Catalytic activity/Vol] 16 U/L Normal 10-60 [facility] Comment on above: Performed By: #### C BC, CMP, HS TROP #### [facility] [address] [place] [phone] [facility] AST [Catalytic activity/Vol] 28 U/L Normal 10-42 [facility] Comment on above: Performed By: #### C BC, CMP, HS TROP #### [facility] [address] [place] [address] [place] Bilirubin [Mass/Vol] 0.9 mg/dL Normal 0.3-1.2 [facility] Comment on above: Performed By: #### C BC, CMP, HS TROP #### [facility] [address] [place] [phone] [place] Calcium [Mass/Vol] 9.6 mg/dL Normal 8.2-10.2 [facility] Comment on above: Performed By: #### C BC, CMP, HS TROP #### [facility] [address] [place] [phone] [place] Chloride [Moles/Vol] 104 mmol/L Normal 95-114 [facility] Comment on above: Performed By: #### C BC, CMP, HS TROP #### [facility] [address] CO2 [Moles/Vol] 18.2 mmol/L Low 22.0-30.0 [facility] Comment on above: Performed By: #### C BC, CMP, HS TROP #### [facility] [address] Creatinine [Mass/Vol] 0.89 mg/dL Normal 0.44-1.03 [facility] Comment on above: Performed By: #### C BC, CMP, HS TROP #### [facility] [address] [place] [address] [place] Creatinine Clr Calc Pharmacy 82.53 [facility] Comment on above: Result Comment: PERF ORMED BY: [place] [address] PATHOLOGIST TELEGRAPH PRINTER MECHANIC ALIX VARGAS M.D. Performed By: #### C BC, CMP, HS TROP #### [facility] [address] Estimated GFR ( Lisette > 60 [facility] Comment on above: Result Comment: GFR estimated reference range: According to KDOQI guidelines, <60 ml/min/1.73m2 is sufficient to diagnose a patient with chronic kidney disease. Performed By: #### C BC, CMP, HS TROP #### [facility] [address] Estimated GFR (Non- Am > 60 [facility] Comment on above: Performed By: #### C BC, CMP, HS TROP #### [facility] [address] [place] [address] [place] Globulin (S) [Mass/Vol] 3.2 g/dL [facility] Comment on above: Performed By: #### C BC, CMP, HS TROP #### [facility] [address] [place] [address] [place] Glucose [Mass/Vol] 110 mg/dL High 70-100 [facility] Comment on above: Result Comment: [place] Glucose Reference Range is dependent on time and content of last meal. Glucose of more than 200 mg/dL in a nonstressed, ambulatory subject supports the diagnosis of Diabetes Mellitus. ADA recommended reference range Performed By: #### C BC, CMP, HS TROP #### [facility] [address] [place] [address] [place] Potassium [Moles/Vol] 3.2 mmol/L Low 3.5-5.1 [facility] Comment on above: Performed By: #### C BC, CMP, HS TROP #### [facility] [address] [place] [address] [place] Protein [Mass/Vol] 8.1 g/dL High 6.1-7.9 [facility] Comment on above: Performed By: #### C BC, CMP, HS TROP #### [facility] [address] Sodium [Moles/Vol] 137 mmol/L Normal 136-146 [facility] Comment on above: Performed By: #### C BC, CMP, HS TROP #### [facility] [address] [place] [address] [place] Urea nitrogen [Mass/Vol] 10 mg/dL Normal 9-23 [facility] Comment on above: Performed By: #### C BC, CMP, HS TROP #### [facility] [address] [place] [address] [place] Creatinine and Glomerular fi ltration rate.predicted panel (S/P/Bld)Ordered By: Dee Hammonds on 09-29-2021 Creatinine [Mass/Vol] 0.89 mg/dL 0.44-1.03 [facility] Dipstick and Microscopicon 0 09-29-2021 Appearance (U) Clear Normal Clear [facility] Comment on above: Order Comment: Name Collection Type:: Clean-Voided Midstream Performed By: #### A DDONUAPLUS, UHCG #### [facility] [address] [place] [address] [place] Bacteria,Urine 1+ High None Seen [facility] Comment on above: Order Comment: Name Collection Type:: Clean-Voided Midstream Performed By: #### A DDONUAPLUS, UHCG #### [facility] [address] [place] [address] [place] Bilirubin,Urine Negative Normal Negative [facility] Comment on above: Order Comment: Name Collection Type:: Clean-Voided Midstream Performed By: #### A DDONUAPLUS, UHCG #### [place] [address] [place] Color (U) Yellow Normal Yellow [facility] Comment on above: Order Comment: Name Collection Type:: Clean-Voided Midstream Performed By: #### A DDONUAPLUS, UHCG #### [place] [address] [place] Glucose Ql (U) Normal Normal Normal [facility] Comment on above: Order Comment: Name Collection Type:: Clean-Voided Midstream Performed By: #### A DDONUAPLUS, UHCG #### [place] [address] [place] Ketones Ql (U) 2+ High Negative [facility] Comment on above: Order Comment: Name Collection Type:: Clean-Voided Midstream Performed By: #### A DDONUAPLUS, UHCG #### [place] [address] [place] Leukocyte esterase Test strip Ql (U) 1+ High Negative [facility] Comment on above: Order Comment: Name Collection Type:: Clean-Voided Midstream Performed By: #### A DDONUAPLUS, UHCG #### [place] [address] [place] Nitrite,Urine Negative Normal Negative [facility] Comment on above: Order Comment: Name Collection Type:: Clean-Voided Midstream Performed By: #### A DDONUAPLUS, UHCG #### [place] [address] [place] Occult Blood,Urine Negative Normal Negative [facility] Comment on above: Order Comment: Name Collection Type:: Clean-Voided Midstream Performed By: #### A DDONUAPLUS, UHCG #### [address] pH (U) 8.5 [pH] Normal 5.0-9.0 [facility] Comment on above: Order Comment: Name Collection Type:: Clean-Voided Midstream Performed By: #### A DDONUAPLUS, UHCG #### [address] Protein (U) [Mass/Vol] 30 mg/dL High Negative [facility] Comment on above: Order Comment: Name Collection Type:: Clean-Voided Midstream Performed By: #### A DDONUAPLUS, UHCG #### [address] RBC LM.HPF (Urine sed) [#/Area] 0 /[HPF] Normal 0-4 [facility] Comment on above: Order Comment: Name Collection Type:: Clean-Voided Midstream Performed By: #### A DDONUAPLUS CG #### [address] Specificy [place],Urine 1.019 Normal 1.001-1.030 [facility] Comment on above: Order Comment: Name Collection Type:: Clean-Voided Midstream Performed By: #### A DDONUAPLUS, CG #### [address] Squamous Epithelial Cell,Urine 3-4 High 0-2 [facility] Comment on above: Order Comment: Name Collection Type:: Clean-Voided Midstream Performed By: #### A DDONUAPLUS, UHCG #### [address] Urobilinogen,Urine Normal Normal Normal [facility] Comment on above: Order Comment: Name Collection Type:: Clean-Voided Midstream Performed By: #### A DDONUAPLUS, UHCG #### [address] WBC LM.HPF (Urine sed) [#/Area] 0 /[HPF] Normal 0-4 [facility] Comment on above: Order Comment: Name Collection Type:: Clean-Voided Midstream Performed By: #### A DDONUAPLUS, CG #### [facility] [address] [place] [address] Yeast,Urine Rare Critically abnormal None Seen [facility] Comment on above: Order Comment: Name Collection Type:: Clean-Voided Midstream Performed By: #### A DDONUAPLUS, CG #### [facility] [address] [place] [address] ECG 12 lead ECGon 09-29-2021 ECG 12 lead ECG [facility] [place] [address] [place] [address] Electrocardiograph Report Signed Patient: Maude Moore MR#: [id number] 2 : 2005 Acct:[id number] Age/Sex: 16 / F ADM Date: 09/29/21 Loc: ER Room: Type: [facility] ER Attending Dr: Ordering Provider: [...] By Tana Villalta MD 09/13 190 Normal [facility] Eosinophils Auto (Bld) [#/Vo l]Ordered By: Dee Hammonds on 09-29-2021 Eosinophils (Bld) [#/Vol] 0.0 10*3/uL 0.0-0.7 [facility] Eosinophils/100 WBC Auto (Bl d)Ordered By: Dee Hammonds on 09-29-2021 Eosinophils/100 WBC (Bld) 0.0 % . [facility] Erythrocyte distribution wid th Auto (RBC) [Ratio]Ordered By: Dee Hammonds on 09-29-2021 Erythrocyte distribution width (RBC) [Ratio] 18.9 % 11.9-15.3 [facility] Estimated glomerular filtrat ion rate (GFR) non- AmericanOrdered By: Dee Hammonds on 09-29-2021 GFR/1.73 sq M.predicted among non-blacks MDRD (S/P/Bld) [Vol rate/Area] > 60 mL/Min [facility] Globulin Calc (S) [Mass/Vol] Ordered By: Dee Hammonds on 09-29-2021 Globulin (S) [Mass/Vol] 3.2 g/dL [facility] HCG ( test) IA.rapi d Ql (U)Ordered By: Dee Hammonds on 09-29-2021 HCG ( test) Ql (U) Negative [facility] HCG,Urineon 09-29-2021 Beta HCG ( test) Ql (U) Negative Normal [facility] Comment on above: Order Comment: Name Collection Type:: Clean-Voided Midstream Result Comment: PERF ORMED BY: [place] [address] PATHOLOGIST TELEGRAPH PRINTER MECHANIC ALIX VARGAS M.D. Performed By: #### A DDONUAPLUS, [facility] #### [address] Hematocrit Auto (Bld) [Volum e fraction]Ordered By: Dee Hammonds on 09-29-2021 Hematocrit (Bld) [Volume fraction] 36.9 % 36.0-46.0 [facility] Ketones Auto test strip (U) [Mass/Vol]Ordered By: Dee Hammonds on 09-29-2021 Ketones (U) [Mass/Vol] 2+ Negative [facility] - Hematology and Cell countsOrdered By: Dee Hammonds on 09-29-2021 Nucleated RBC/100 WBC (Bld) [Ratio] 0.0 % 0-0.5 [facility] Lymphocytes Auto (Bld) [#/Vo l]Ordered By: Dee Hammonds on 09-29-2021 Lymphocytes (Bld) [#/Vol] 0.6 10*3/uL 1.20-4.8 [facility] Lymphocytes/100 WBC Auto (Bl d)Ordered By: Dee Hammonds on 09-29-2021 Lymphocytes/100 WBC (Bld) 5.7 % . [facility] MCH Auto (RBC) [Entitic mass ]Ordered By: Dee Hammonds on 09-29-2021 MCH (RBC) [Entitic mass] 27.1 pg 25.0-35.0 [facility] MCHC Auto (RBC) [Mass/Vol]Or dered By: Dee Hammonds on 09-29-2021 MCHC (RBC) [Mass/Vol] 32.5 g/dL 31.0-37.0 [facility] MCV Auto (RBC) [Entitic vol] Ordered By: Dee Hammonds on 09-29-2021 MCV (RBC) [Entitic vol] 83.5 fL 78-102 [facility] Monocytes Auto (Bld) [#/Vol] Ordered By: Dee Hammonds on 09-29-2021 Monocytes (Bld) [#/Vol] 0.2 10*3/uL 0.1-1.00 [facility] Monocytes/100 WBC Auto (Bld) Ordered By: Dee Hammonds on 09-29-2021 Monocytes/100 WBC (Bld) 1.9 % . [facility] Neutrophils Auto (Bld) [#/Vo l]Ordered By: Dee Hammonds on 09-29-2021 Neutrophils (Bld) [#/Vol] 9.4 10*3/uL 1.2-7.7 [facility] Neutrophils/100 WBC Auto (Bl d)Ordered By: Dee Hammonds on 09-29-2021 Neutrophils/100 WBC (Bld) 92.1 % . [facility] Nitrite Test strip Ql (U)Ord ered By: Dee Hammonds on 09-29-2021 Nitrite Ql (U) Negative Negative [facility] No Panel InformationOrdered By: Dee Hammonds on 08-07-2022 Estimated GFR () > 60 mL/Min [facility] Comment on above: GFR estimated refere nce range: According to KDOQI guidelines, <60 ml/min/1.73m2 is sufficient to diagnose a patient with chronic kidney disease. Pharmacy Creatinine Clearance (Chem 82.53 [facility] Platelet mean volume Auto (B ld) [Entitic vol]Ordered By: Dee Hammonds on 09-29-2021 Platelet mean volume (Bld) [Entitic vol] 8.4 fL 6.3-10.7 [facility] Platelets Auto (Bld) [#/Vol] Ordered By: Dee Hammonds on 09-29-2021 Platelets (Bld) [#/Vol] 428 10*3/uL 150-450 [facility] Protein Auto test strip (U) [Mass/Vol]Ordered By: Dee Hammonds on 09-29-2021 Protein (U) [Mass/Vol] 30 mg/dL Negative [facility] Protein [Mass/volume] in Ser um or PlasmaOrdered By: Dee Hammonds on 09-29-2021 Protein [Mass/Vol] 8.1 g/dL 6.1-7.9 [facility] RBC Auto (Bld) [#/Vol]Ordere d By: Dee Hammonds on 09-29-2021 RBC (Bld) [#/Vol] 4.42 10*6/uL 4.10-5.10 [facility] Serum or plasma alanine carmona otransferase measurement without P-5'-P (enzymatic activiOrdered By: Dee Hammonds on 09-29-2021 ALT No additional P-5'-P [Catalytic activity/Vol] 16 U/L 10-60 [facility] Serum or plasma albumin/glob ulin mass ratioOrdered By: Dee Hammonds on 09-29-2021 Albumin/Globulin [Mass ratio] 1.5 {ratio} [facility] Serum or plasma alkaline mckayla sphatase measurement (enzymatic activity/volume)Ordered By: Dee Hammonds on 09-29-2021 ALP [Catalytic activity/Vol] 50 U/L 32-92 [facility] Serum or plasma aspartate am inotransferase measurement (enzymatic activity/volume)Ordered By: Dee Hammonds on 09-29-2021 AST [Catalytic activity/Vol] 28 U/L 10-42 [facility] Serum or plasma calcium moira urement (mass/volume)Ordered By: Dee Hammonds on 09-29-2021 Calcium [Mass/Vol] 9.6 mg/dL 8.2-10.2 [facility] Serum or plasma chloride jey surement (moles/volume)Ordered By: Dee Hammonds on 09-29-2021 Chloride [Moles/Vol] 104 mmol/L 95-114 [facility] Serum or plasma glucose moira urement (mass/volume)Ordered By: Dee Hammonds on 09-29-2021 Glucose [Mass/Vol] 110 mg/dL 70-100 [facility] Comment on above: ADA recommended refe rence range [place] Glucose Reference Range is dependent on time and content of last meal. Glucose of more than 200 mg/dL in a nonstressed, ambulatory subject supports the diagnosis of Diabetes Mellitus. Serum or plasma potassium me asurement (moles/volume)Ordered By: Dee Hammonds on 09-29-2021 Potassium [Moles/Vol] 3.2 mmol/L 3.5-5.1 [facility] Serum or plasma sodium measu rement (moles/volume)Ordered By: Dee Hammonds on 09-29-2021 Sodium [Moles/Vol] 137 mmol/L 136-146 [facility] Serum or plasma total biliru bin measurement (mass/volume)Ordered By: Dee Hammonds on 09-29-2021 Bilirubin [Mass/Vol] 0.9 mg/dL 0.3-1.2 [facility] Serum or plasma total carbon dioxide measurement (moles/volume)Ordered By: Dee Hammonds on 09-29-2021 CO2 [Moles/Vol] 18.2 mmol/L 22.0-30.0 [facility] Serum or plasma urea nitroge n measurement (mass/volume)Ordered By: Dee Hammonds on 09-29-2021 Urea nitrogen [Mass/Vol] 10 mg/dL 9-23 [facility] Specific gravity Auto test s trip (U) [Rel density]Ordered By: Dee Hammonds on 09-29-2021 Specific gravity (U) [Rel density] 1.019 1.001-1.030 [facility] Troponin I High Sensitivityo n 09-29-2021 Troponin I High Sensitivity 3 pg/mL Normal 0-15 [facility] Comment on above: Result Comment: PERF ORMED BY: [place] [address] PATHOLOGIST TELEGRAPH PRINTER MECHANIC ALIX VARGAS M.D. Performed By: #### C BC, CMP, HS TROP #### [address] Troponin I.cardiac [Mass/vol ume] in Serum or Plasma by High sensitivity methodOrdered By: Dee Hammonds on 09-29-2021 Troponin I.cardiac High sensitivity method [Mass/Vol] 3 pg/mL 0-15 [facility] Urine bacteria detection by automated methodOrdered By: Dee Hammonds on 09-29-2021 Bacteria Auto Ql (U) 1+ None Seen [facility] Urine clarity by refractomet ry automatedOrdered By: Dee Hammonds on 09-29-2021 Clarity Refractometry automated (U) Clear Clear [facility] Urine glucose measurement by automated test strip (mass/volume)Ordered By: Dee Hammonds on 09-29-2021 Glucose Auto test strip (U) [Mass/Vol] Normal mg/dL Normal [facility] Urine hemoglobin detection b y automated test stripOrdered By: Dee Hammonds on 09-29-2021 Hemoglobin Auto test strip Ql (U) Negative Negative [facility] Urine leukocyte esterase det ection by automated test stripOrdered By: Dee Hammonds on 09-29-2021 Leukocyte esterase Auto test strip Ql (U) 1+ Negative [facility] Urobilinogen Auto test strip (U) [Mass/Vol]Ordered By: Dee Hammonds on 09-29-2021 Urobilinogen (U) [Mass/Vol] Normal mg/dL Normal [facility] XR chest 2V*on 09-29-2021 XR chest 2V* [facility] [place] [address] XRay Report Signed Patient: Maude Moroe MR#: [id number] 2 : 2005 Acct:[id number] Age/Sex: 16 / F ADM Date: 09/29/21 Loc: ER Room: Type: [facility] ER Attending Dr: Copies to: Dee Hammonds [...] Alexander Jr., D.O.09/29/2021 5:43 PM Dictation Location: [place] [address] Transcribed By: [facility] 09/29/211742 Dictated By: Aden Alexander Jr, DO 09/29/211742 Signed By: 09/29/21 174 Normal [facility] Yeast detection in urine sed iment by light microscopyOrdered By: Dee Hammonds on 09-29-2021 Yeast LM Ql (Urine sed) Rare [HPF] None Seen [facility] pH Auto test strip (U)Ordere d By: Dee Hammonds on 09-29-2021 pH (U) 8.5 [pH] 5.0-9.0 [facility] ER URINE PROFILEon 2 Bilirubin Ql (U) Negative Normal NEGATIVE [facility] Comment on above: Performed By: #### U MICRO, ERUR, PREGU #### [facility] [address] [place] [address] [address] Deepak Ceballos Clarity (U) CLEAR Normal CLEAR [facility] Comment on above: Performed By: #### U MICRO, ERUR, PREGU #### [facility] [address] [place] [address] [address] Deepak Ceballos Color (U) LT. YELLOW Normal YELLOW [facility] Comment on above: Performed By: #### U MICRO, ERUR, PREGU #### [facility] [address] [place] [address] [address] Deepak DENNIS A micrscopic examination will be performed if indicated. Normal [facility] Comment on above: Performed By: #### U MICRO, ERUR, PREGU #### [facility] [address] [place] [address] [address] Deepak Ceballos Glucose Ql (U) Negative Normal NEGATIVE [facility] Comment on above: Performed By: #### U MICRO, ERUR, PREGU #### [facility] [address] [place] [address] [address] Deepak Ceballos Hemoglobin Ql (U) SMALL Abnormal NEGATIVE [facility] Comment on above: Performed By: #### U MICRO, ERUR, PREGU #### [facility] [address] [place] [address] Dr. Deepak Ceballos Ketones Ql (U) 40 mg/dl Abnormal NEGATIVE [facility] Comment on above: Performed By: #### U MICRO, ERUR, PREGU #### [facility] [address] [place] [address] [address] Deepak Ceballos LEUKOCYTES Negative Normal NEGATIVE [facility] Comment on above: Performed By: #### U MICRO, ERUR, PREGU #### [facility] [address] [place] [address] [address] Deepak Ceballos Nitrite Ql (U) Negative Normal NEGATIVE [facility] Comment on above: Performed By: #### U MICRO, ERUR, PREGU #### [facility] [address] [place] [address] [address] Deepak Ceballos pH (U) 8.5 [pH] Normal 5-9 [facility] Comment on above: Performed By: #### U MICRO, ERUR, PREGU #### [facility] [address] [place] [address] [address] Deepak Ceballos SPEC GRAVITY 1.020 Normal 1.005-<=1.025 [facility] Comment on above: Performed By: #### U MICRO, ERUR, PREGU #### [facility] [address] [place] [address] [address] Deepak Ceballos UA PROTEIN Negative Normal NEGATIVE/ TRACE [facility] Comment on above: Performed By: #### U MICRO, ERUR, PREGU #### [facility] [address] [place] [address] Dr. Deepak Ceballos UR MICRO IND INDICATED Normal [facility] Comment on above: Performed By: #### U MICRO, ERUR, PREGU #### [facility] [address] [place] [address] [address] Deepak Ceballos Urobilinogen Qn (U) 0.2 {Sam'U}/dL Normal 0.2 - 1. 0 [facility] Comment on above: Performed By: #### U MICRO, ERUR, PREGU #### [facility] [address] [place] [address] Dr. Deepak Ceballos URon 05-09-2021 , QUAL Negative Normal NEGATIVE [facility] Comment on above: Performed By: #### U MICRO, ERUR, PREGU #### [facility] [address] [place] [address] Dr. Deepak Ceballos URINE MICROSCOPIC ONLYon BACTERIA NONE SEEN Normal NONE SEEN [facility] Comment on above: Performed By: #### U MICRO, ERUR, PREGU #### [facility] [address] [place] [address] Dr. Deepak Ceballos Bacteria identified Cx Nom (U) NOT INDICATED Normal [facility] Comment on above: Performed By: #### U MICRO, ERUR, PREGU #### [facility] [address] [place] [address] Dr. Deepak Ceballos CAST NONE SEEN Normal NONE SEEN [facility] Comment on above: Performed By: #### U MICRO, ERUR, PREGU #### [facility] [address] [place] [address] Dr. Deepak Ceballos Crystals LM Nom (Urine sed) NONE SEEN Normal NONE SEEN [facility] Comment on above: Performed By: #### U MICRO, ERUR, PREGU #### [facility] [address] [place] [address] Dr. Deepak Ceballos Epithelial cells LM Ql (Urine sed) FEW Abnormal NONE SEEN /RARE [facility] Comment on above: Performed By: #### U MICRO, ERUR, PREGU #### [facility] [address] [place] [address] Dr. Deepak Ceballos MUCOUS TRACE Abnormal NONE SEEN [facility] Comment on above: Performed By: #### U MICRO, ERUR, PREGU #### [facility] [address] [place] [address] Dr. Deepak Ceballos RBC 0-2 Normal 0-[address] [facility] Comment on above: Performed By: #### U MICRO, ERUR, PREGU #### [facility] [address] [place] [address] Dr. Deepak Ceballos WBC 0-2 Abnormal NONE SEEN [facility] Comment on above: Performed By: #### U MICRO, ERUR, PREGU #### [facility] [address] [place] [address] Dr. Deepak Ceballos CANNABINOID (THC) CONFIRMATI ON, URINEon 07-14-2020 Cannabinoid Positive Abnormal [facility] Comment on above: Performed By: #### T HCCONF #### [facility] [address] [place] [address] Tramaine Olson THC GC/MS Conf 253 ng/mL Normal Cutoff=10 Th [facility] Comment on above: Performed By: #### T HCCONF #### [facility] [address] [place] [address] Tramaine Dugan CBC AUTO DIFFon 07-10-2020 BASO # 0.0 103/ul Normal 0.0-0.[address] [facility] Comment on above: Performed By: #### G BSCX #### [facility] [address] [place] [address] Tramaine Dugan Basophils/100 WBC (Bld) 0.3 % Normal 0.2-2.[address] [facility] Comment on above: Performed By: #### G BSCX #### [facility] [address] [place] [address] Tramaine Dugan EO # 0.0 103/ul Normal 0.0-0.[address] [facility] Comment on above: Performed By: #### G BSCX #### [facility] [address] [place] [address] Tramaine Kailee Eosinophils/100 WBC (Bld) 0.1 % Critically low 0.9-7.[address] [facility] Comment on above: Performed By: #### G BSCX #### [facility] [address] [place] [address] Tramaine Kailee Erythrocyte distribution width (RBC) [Ratio] 13.3 % Normal 11.0-15.[address] [facility] Comment on above: Performed By: #### G BSCX #### [facility] [address] [place] [address] Tramaine Chandleren Hematocrit (Bld) [Volume fraction] 25.4 % Critically low 36.0-48.[address] [facility] Comment on above: Performed By: #### G BSCX #### [facility] [address] [place] [address] Tramaine Kailee Hemoglobin (Bld) [Mass/Vol] 8.6 g/dL Critically low 12.0-16.[address] [facility] Comment on above: Performed By: #### G BSCX #### [facility] [address] [place] [address] Tramaine Kailee IG # 0.10 10e3/ul Critically high 0.00-0.03 [facility] Comment on above: Performed By: #### G BSCX #### [facility] [address] [place] [address] Tramaine Kailee IG % 0.6 % Critically high 0.0-0.5 [facility] Comment on above: Performed By: #### G BSCX #### [facility] [address] [place] [address] Tramaine Kailee LYMPH # 2.0 103/ul Normal 1.2-3.[address] [facility] Comment on above: Performed By: #### G BSCX #### [facility] [address] [place] [address] Tramaine Kailee Lymphocytes/100 WBC (Bld) 12.6 % Critically low 20.5-60.[address] [facility] Comment on above: Performed By: #### G BSCX #### [facility] [address] [place], [place] [id number] Tramaine Dugan MANUAL DIFF REQ NO Normal [facility] Comment on above: Performed By: #### G BSCX #### [facility] [address] [place], [place] [id number] Tramaine Kailee MCH (RBC) [Entitic mass] 31.0 pg Normal 26.7-34.[address] [facility] Comment on above: Performed By: #### G BSCX #### [facility] [address] [place] [address] Tramaine Chandleren MCHC (RBC) [Mass/Vol] 33.9 g/dL Normal 29.9-35.[address] [facility] Comment on above: Performed By: #### G BSCX #### [facility] [address] [place] [address] Tramaineval Dugan MCV (RBC) [Entitic vol] 91.7 fL Normal 79.1-95.[address] [facility] Comment on above: Performed By: #### G BSCX #### [facility] [address] [place] [address] Tramaine Chandleren MONO # 0.8 103/ul Normal 0.3-0.[address] [facility] Comment on above: Performed By: #### G BSCX #### [facility] [address] [place] [address] Tramaine Dugan Monocytes/100 WBC (Bld) 5.3 % Normal 1.7-12.[address] [facility] Comment on above: Performed By: #### G BSCX #### [facility] [address] [place], [place] [id number] Tramaine Dugan NEUT # 12.6 103/ul Critically high 1.4-6.5 [facility] Comment on above: Performed By: #### G BSCX #### [facility] [address] [place], [place] [id number] Tramaine Dugan Neutrophils/100 WBC (Bld) 81.1 % Critically high 43.0-75.[address] [facility] Comment on above: Performed By: #### G BSCX #### [facility] [address] [address] [place], [place] [id number] Tramaineval Dugan Platelet mean volume (Bld) [Entitic vol] 10.8 fL Normal 9.5-13.5 [facility] Comment on above: Performed By: #### G BSCX #### [facility] [address] [place], [place] [id number] Tramaine Kailee PLT 227 103/ul Normal 150-450 [facility] Comment on above: Performed By: #### G BSCX #### [facility] [address] [place] [address] Tramaine Kailee RBC 2.77 106/ul Critically low 3.40-5.30 [facility] Comment on above: Performed By: #### G BSCX #### [facility] [address] [place] [address] Tramaine Kailee WBC 15.5 103/ul Critically high 4.0-11.0 [facility] Comment on above: Performed By: #### G BSCX #### [facility] [address] [place], [place] [id number] Tramaine Kailee CBC AUTO DIFFon 07-09-2020 BASO # 0.0 103/ul Normal 0.0-0.1 [facility] Comment on above: Performed By: #### C BC #### [facility] [address] [place], [place] [id number] Tramaine Kailee Basophils/100 WBC (Bld) 0.3 % Normal 0.2-2.0 [facility] Comment on above: Performed By: #### C BC #### [facility] [address] [place], [place] [id number] Tramaine Kailee EO # 0.1 103/ul Normal 0.0-0.7 [facility] Comment on above: Performed By: #### C BC #### [facility] [address] [place], [place] [id number] Tramaine Kailee Eosinophils/100 WBC (Bld) 0.6 % Critically low 0.9-7.[address] [facility] Comment on above: Performed By: #### C BC #### [facility] [address] [place] [address] Tramaine Dugan Erythrocyte distribution width (RBC) [Ratio] 13.3 % Normal 11.0-15.[address] [facility] Comment on above: Performed By: #### C BC #### [facility] [address] [place] [address] Tramaine Dugan Hematocrit (Bld) [Volume fraction] 31.1 % Critically low 36.0-48.[address] [facility] Comment on above: Performed By: #### C BC #### [facility] [address] [place] [address] Tramaine Dugan Hemoglobin (Bld) [Mass/Vol] 10.5 g/dL Critically low 12.0-16.[address] [facility] Comment on above: Performed By: #### C BC #### [facility] [address] [place] [address] Tramaineval Dugan IG # 0.08 10e3/ul Critically high 0.00-0.03 [facility] Comment on above: Performed By: #### C BC #### [facility] [address] [place] [address] Tramaine Dugan IG % 0.8 % Critically high 0.0-0.5 [facility] Comment on above: Performed By: #### C BC #### [facility] [address] [place] [address] Tramaine Dugan LYMPH # 2.1 103/ul Normal 1.2-3.[address] [facility] Comment on above: Performed By: #### C BC #### [facility] [address] [place], [place] [id number] Tramaine Dugan Lymphocytes/100 WBC (Bld) 20.1 % Critically low 20.5-60.[address] [facility] Comment on above: Performed By: #### C BC #### [facility] [address] [place] [address] Tramaine Dugan MANUAL DIFF REQ NO Normal [facility] Comment on above: Performed By: #### C BC #### [facility] [address] [place], [place] [address] Tramaineval Dugan MCH (RBC) [Entitic mass] 31.1 pg Normal 26.7-34.[address] [facility] Comment on above: Performed By: #### C BC #### [facility] [address] [place], [place] [address] Tramaineval Dugan MCHC (RBC) [Mass/Vol] 33.8 g/dL Normal 29.9-35.2 [facility] Comment on above: Performed By: #### C BC #### [facility] [address] [place], [place] [address] Tramaineval Dugan MCV (RBC) [Entitic vol] 92.0 fL Normal 79.1-95.6 [facility] Comment on above: Performed By: #### C BC #### [facility] [address] [place] [id number] Tramaine Kailee MONO # 0.7 103/ul Normal 0.3-0.[address] [facility] Comment on above: Performed By: #### C BC #### [facility] [address] [place] [id number] Tramaine Kailee Monocytes/100 WBC (Bld) 6.4 % Normal 1.7-12.[address] [facility] Comment on above: Performed By: #### C BC #### [facility] [address] [place] [id number] Tramaineval Chandleren NEUT # 7.5 103/ul Critically high 1.4-6.5 [facility] Comment on above: Performed By: #### C BC #### [facility] [address] [place], [place] [address] Tramaine Kailee Neutrophils/100 WBC (Bld) 71.8 % Normal 43.0-75.0 [facility] Comment on above: Performed By: #### C BC #### [facility] [address] [place], [place] [address] Tramaine Kailee Platelet mean volume (Bld) [Entitic vol] 11.0 fL Normal 9.5-13.5 [facility] Comment on above: Performed By: #### C BC #### [facility] [address] [place], [place] [address] Tramaine Dugan PLT 274 103/ul Normal 150-450 [facility] Comment on above: Performed By: #### C BC #### [facility] [address] [place], [place] [address] Tramaine Dugan RBC 3.38 106/ul Critically low 3.40-5.30 [facility] Comment on above: Performed By: #### C BC #### [facility] [address] [place] [id number] Tramaine Dugan WBC 10.4 103/ul Normal 4.0-11.0 [facility] Comment on above: Performed By: #### C BC #### [facility] [address] [place] [address] Tramaine Dugan [facility] Sample Type Test performed using RT-PCR from a nasopharyngeal collected specimen. Normal [facility] Comment on above: Performed By: #### C VDTBH #### [facility] [address] [place], [place] [id number] Tramaine Dugan SARS-CoV-2 (COVID-19) RNA FANNY+probe Ql (Unsp spec) Not detected Normal NOT DETECTED [facility] Comment on above: Result Comment: This test is not yet approved or cleared by the [place] FDA. When there are no FDA-approved or cleared tests available, and other criteria are met, FDA can make tests available under an emergency access mechanism called an Emergency Use Authorization (EUA). The EUA for this test is supported by the [place] of Health and Human Service's (HHS's) declaration [...] SARS-CoV-2. Performed By: #### C VDTBH #### [facility] [address] [place] [address] Tramaine Kailee DRUG SCREEN RAPID (URINE)on 07-09-2020 AMP Negative Normal NEGATIVE [facility] Comment on above: Performed By: #### D RUGRPD #### [facility] [address] [place] [address] Tramaine Kailee BAR Negative Normal NEGATIVE [facility] Comment on above: Performed By: #### D RUGRPD #### [facility] [address] [place] [address] Tramaine Kailee BUP Negative Normal NEGATIVE [facility] Comment on above: Performed By: #### D RUGRPD #### [facility] [address] [place] [address] Tramaine Kailee BZO Negative Normal NEGATIVE [facility] Comment on above: Performed By: #### D RUGRPD #### [facility] [address] [place] [address] Tramaine Kailee GRAYSON Negative Normal NEGATIVE [facility] Comment on above: Performed By: #### D RUGRPD #### [facility] [address] [place] [address] Tramaine Kailee CUT-OFFS SEE BELOW Normal [facility] Comment on above: Result Comment: AMP [...] ng/mL Performed By: #### D RUGRPD #### [facility] [address] [place], [place] [address] Tramaine Kailee DRUG CUT HEADER DRUG CLASS TEST SYSTEM CUT-OFF CONCENTRATIONS ARE FOLLOWS: Normal [facility] Comment on above: Performed By: #### D RUGRPD #### [facility] [address] [place] [address] Tramaine Kailee mAMP Negative Normal NEGATIVE [facility] Comment on above: Performed By: #### D RUGRPD #### [facility] [address] [place] [address] Tramaine Kailee MTD Negative Normal NEGATIVE [facility] Comment on above: Performed By: #### D RUGRPD #### [facility] [address] [place] [address] Tramaine Kailee OPI Negative Normal NEGATIVE [facility] Comment on above: Performed By: #### D RUGRPD #### [facility] [address] [place] [address] Tramaine Kailee OXY Negative Normal NEGATIVE [facility] Comment on above: Performed By: #### D RUGRPD #### [facility] [address] [place] [address] Tramaine Kailee PCP Negative Normal NEGATIVE [facility] Comment on above: Performed By: #### D RUGRPD #### [facility] [address] [place] [address] Tramaine Kailee PPX Negative Normal NEGATIVE [facility] Comment on above: Performed By: #### D RUGRPD #### [facility] [address] [place] [address] Tramaine Kailee TCA Negative Normal NEGATIVE [facility] Comment on above: Performed By: #### D RUGRPD #### [facility] [address] [place] [address] Tramaine Kailee THC Positive Abnormal NEGATIVE [facility] Comment on above: Result Comment: send out for confirmation per Tania in [facility] Performed By: #### D RUGRPD #### [facility] [address] [place] [address] Tramaine Kailee RAPID COVID-19 ANTIGENon EUA Statement SEE BELOW Normal [facility] Comment on above: Result Comment: This [...] sooner. Performed By: #### C VDAG #### [facility] [address] [place] [address] SARS-CoV-2 (COVID-19) RNA FANNY+probe Ql (Unsp spec) Negative Normal NEGATIVE [facility] Comment on above: Result Comment: Nega tive results are presumptive. They do not preclude infection and should not be used as the sole basis for treatment decisions. Additional confirmatory testing by a molecular method should be considered. Performed By: #### C VDAG #### [facility] [address] [place] [address] Tramaine Dugan TYPE AND SCREENon 07-09-2020 TYPE AND SCREEN Negative Normal [facility] Comment on above: Performed By: #### T NS #### [facility] [address] [place] [address] GROUP B STREP CULTUREon S. agalactiae Ag Ql (Unsp spec) Culture Observations: NEGATIVE FOR GROUP B STREPTOCOCCUS Normal [facility] Comment on above: Performed By: #### G BSCX #### [facility] [address] [place] [address] Vital Signs Date Time Vital Sign Value Performing Clinician Faci lity 09-29-2021 18:20-0400 Diastolic blood pressure 58 mm[Hg] PHYSICIAN NO [facility] 09-29-2021 18:20-0400 Heart rate 89 /min PHYSICIAN NO [facility] 09-29-2021 18:20-0400 Respiratory rate 16 /min PHYSICIAN NO [facility] 09-29-2021 18:20-0400 SaO2% (BldA) [Mass fraction] 98 % PHYSICIAN NO [facility] 09-29-2021 18:20-0400 Systolic blood pressure 101 mm[Hg] PHYSICIAN NO [facility] 09-29-2021 14:06-0400 Body height 160.02 cm PHYSICIAN NO [facility] 09-29-2021 14:06-0400 Body temperature 97.6 [degF] PHYSICIAN NO [facility] 09-29-2021 14:06-0400 Body weight 51 kg PHYSICIAN NO [facility] Encounters Encounter Date Encounter Type Care Provider Facility Start: 05-27-2023 End: 05-27-2023 ambulatory PHILOMENA BRANDI Not Available Start: 05-20-2023 End: 05-20-2023 ambulatory GALDINO STEFAN Not Available Start: 05-08-2023 End: 05-08-2023 Emergency department patient visit TANA Marybeth HYDE [facility] Start: 05-06-2023 End: 05-06-2023 ambulatory PHILOMENA BRANDI Not Available Start: 04-16-2023 End: 04-16-2023 ambulatory GALDINO STEFAN Not Available Start: 04-14-2023 End: 04-15-2023 [facility] Start: 02-10-2023 End: 02-10-2023 ambulatory PHILOMENA BRANDI Not Available Start: 01-22-2023 End: 01-22-2023 ambulatory GALDINO STEFAN Not Available Start: 09-29-2021 End: 09-29-2021 Emergency department patient visit PHYSICIAN NO [facility] Facility:[facility] Start: 09-29-2021 End: 09-29-2021 Emergency department patient visit PHYSICIAN NO [facility] Start: 05-09-2021 End: 05-09-2021 ambulatory BONNIE CACERES Facility:[facility] Start: 05-09-2021 End: 05-09-[address] NONE LISTED REQUEST Facility:[facility] Start: 2020 End: [address] ANDRES LISTED REQUEST Facility:[facility] Start: 07-09-2020 End: 07-11-2020 [...] Patient Education Urinary Tract Infection, Adult ED [facility] Work Phone: Patient referral [facility] Work Phone: Payers Date Payer Category Payer Self-pay 2003 Unknown [id number] [id number] 2003 Unknown [id number] 2.16.8 [id number] 2003 Unknown [id number] 2.16.84 [id number] 2003 Unknown [id number] 2.16.84 [id number] 2003 Unknown [id number] 2.16.84 [id number] 2003 Unknown [id number] 2.16.84 [id number] 2003 Unknown [id number] 2.16.840 .[id number] 2003 Unknown [id number] 2.16.840 .[id number] 1979 Unknown [id number] 2.16.84 [id number] 1979 Unknown [id number] 2.16.84 [id number] 1979 Unknown [id number] 2.16.84 [id number] 1979 Unknown [id number] 2.16.84 [id number] 1979 Unknown [id number] 2.16.84 [id number] 1959 Unknown [id number] Unknown [id number] 2.16.8 [id number] Social History Date Type Detail Facility Start: 09-29-2021 Tobacco smoking stat [facility] Ex-smoker (finding) [facility] Start: 2005 Sex Assigned At Female F [facility] Evaluation note Note Date & Type Note Facility Evaluation note No assessment information availa ble [facility] Work Phone: Hospital Discharge instructions Note Date & Type Note Facility Hospital Discharge instructions Additional Instructions Push fluids Rest Zofran if needed for nausea vomiting Take antibiotic as instructed until gone Take Diflucan as instructed Return here if any problems persist or worsen Follow-up with your doctor in the next 3 days Avoid alcohol [facility] Work Phone: Summary Purpose Family [...] content) DATE CREATED AUTHOR 05/10/2021 [facility] DATE CREATED AUTHOR AUTHOR'S ORGANIZ ATION 03/29/2022 [facility] DATE CREATED AUTHOR AUTHOR'S ORGANIZ ATION 05/09/2023 [facility] DATE CREATED AUTHOR AUTHOR'S ORGANIZ ATION 05/28/2023 [facility] Care Teams (unrecognized sec tion and content) [...] BE BASED ON THE PRIMARY CLINICAL RECORDS. [employer] [facility]. provides no warranty or guarantee of the accuracy or completeness of information in this document.
[2023-05-29 12:30] VITALS: BP 117/74; PULSE 96
== END 2023-05-29 13:45 | disposition home or self-care (01) ==
LOC: FBCO 07:15 → FBC 12:21
PROVIDERS: Visit Provider Obstetrics & Gynecology
DX: O26.893 Other specified pregnancy related conditions, third trimester (principal)
CPT/HCPCS: 59025

== ENCOUNTER 2023-06-11 09:20 | Inpatient (IN) | payer OTHER, SELFPAY ==
[2023-06-11 09:41] VITALS: BP 117/85; PULSE 78
[2023-06-11 10:06] LABS: Amnisure POSITIVE (NEGATIVE)
[2023-06-11 10:22] LABS: Bilirubin Urine NEGATIVE (NEGATIVE); Blood Urine SMALL (NEGATIVE); Clarity Urine CLEAR (CLEAR); Color Urine LT. YELLOW (YELLOW); Glucose Urine UA NEGATIVE (NEGATIVE); Ketones Urine NEGATIVE (NEGATIVE); Leukocyte Esterase Urine SMALL (NEGATIVE); Nitrite Urine NEGATIVE (NEGATIVE); Protein Urine NEGATIVE (NEG/TRACE); Specific Gravity Urine <=1.005 (1.005-1.025); Urobilinogen Urine 0.2 EU/dL (0.2-1.0); pH Urine 6.5 (5.0-9.0)
[2023-06-11 10:33] LABS: Urine Microscopic Indicated YES
[2023-06-11 10:58] LABS: Cannabinoid Screen Urine POSITIVE (NEGATIVE)
[2023-06-11 10:59] LABS: Amphetamine Screen Urine NEGATIVE (NEGATIVE); Barbiturates Screen Urine NEGATIVE (NEGATIVE); Benzodiazepines Screen Urine NEGATIVE (NEGATIVE); Buprenorphine Screen Urine NEGATIVE (NEGATIVE); Cocaine Screen Urine NEGATIVE (NEGATIVE); Methadone Screen Urine NEGATIVE (NEGATIVE); Methamphetamines Screen Urine NEGATIVE (NEGATIVE); Opiate Screen Urine NEGATIVE (NEGATIVE); Oxycodone Screen Urine NEGATIVE (NEGATIVE); Phencyclidine Screen Urine NEGATIVE (NEGATIVE); Tricyclic Antidepressant Urine NEGATIVE (NEGATIVE)
[2023-06-11 11:00] VITALS: BP 106/75; PULSE 60
[2023-06-11] MEDS: 0.9 % SODIUM CHLORIDE 1,000 ML 125 ML IV (11:00)
[2023-06-11 11:03] LABS: RBC Urine 0-2 #/HPF (0-2); WBC Urine 0-2 #/HPF (NONE SEEN)
[2023-06-11 11:04] LABS: Mucus Urine NONE SEEN (NONE SEEN); Squamous Epithelial Cell Urine FEW #/LPF (NONE/RARE)
[2023-06-11] MEDS: OXYTOCIN/0.9 % SODIUM CHLORIDE 10 UNITS/500 ML PLAST..BAG 6 UNIT IV (11:04)
[2023-06-11 11:05] VITALS: TEMP 36.9
[2023-06-11 11:05] LABS: Bacteria Urine SMALL #/HPF (NONE SEEN); Urine Culture Indicated YES
[2023-06-11 11:08] LABS: Hematocrit 31.5 % (36.0-48.0); Hemoglobin 10.3 g/dL (12.0-16.0); Mean Corpuscular HGB Conc 32.7 g/dL (29.9-35.2); Mean Corpuscular Hemoglobin 30.7 pg (26.7-34.0); Mean Platelet Volume 10.9 fL (9.5-13.5); Platelet Count 257 10^3/uL (150-450); Red Blood Count 3.35 10^6/uL (4.20-5.40); Red Cell Distribution Width 19.8 % (11.0-15.0); White Blood Count 9.4 10^3/uL (4.0-11.0)
[2023-06-11 11:30] VITALS: BP 127/87; PULSE 77
[2023-06-11] MEDS: OXYTOCIN/0.9 % SODIUM CHLORIDE 20 UNITS/1,000 ML PLAST..BAG 125 UNIT IV (12:30)
--- NOTE | 2023-06-11 12:50 | PM.OBPRCVD ---
Procedure Intrapartal events: None Induction method: none Delivery monitor: external FHT and external uterine Route of delivery: Episiotomy Description: none L&D Laceration Description: periurethral - 1st degree and perineal - 1st degree Delivery repair: Vicryl Estimated blood loss (mL): 200 Anesthesia type: None Disposition: floor Delivery date: 06/11/23 Gender: male presentation: vertex Placental delivery description: Spontaneous cord description: 3 Vessels
[2023-06-11 13:02] VITALS: TEMP 36.1
[2023-06-11] MEDS: IBUPROFEN 600 MG TABLET PO (13:44)
[2023-06-11] MEDS: GLYCERIN/WITCH HAZEL PADS 1 PAD TOPICAL (13:44)
--- NOTE | 2023-06-11 21:31 | PC.NURSE ---
pt BP elevated, pt anxious to get to that was transferred to [facility]. pt denies any h/a, visual changes, abdominal pain, reflexes to BUE +0 reflexes to BLE +1 bilateral clonus +0. lungs clear bilateral throughout. no edema noted to lower extremities. Dr Whitman notified at 2118 of pts BP and pt stating that she has hx of HTN and hyperthyroid and didn't take her medication (synthroid) today. Dr Whitman states to discharge pt and he will follow up with pt.
--- NOTE | 2023-06-19 01:24 | PM.OBPN ---
OB - PN: Subj Subjective Patient comments: no complaints and pain well controlled [place] status: doing well Exam Constitutional Vital Signs, click to edit/add: Last Vital Signs Temp 97.0 F L 06/11/23 13:02 Pulse 77 06/11/23 11:30 BP 127/87 06/11/23 11:30 Documenting provider has reviewed patient's vital signs: yes Common normals: no apparent distress Respiratory Common normals: normal respiratory effort and clear to auscultation bilaterally Cardio Common normals: regular rate and regular rhythm GI Common normals: Normal to inspection, nondistended, normoactive bowel sounds present Extremity Common normals: no clubbing, cyanosis or edema and no calf tenderness OB - PN: A/P Plan - Vaginal Delivery day: 1 Plan: routine care and discharge home Time Spent with Patient Time: Total time spent is greater than 50% in coordination of care (as documented) at patient's floor/unit and/or counseling patient: Total time spent with greater than 50% in coordination of care (as documented) at patient's floor/unit and/or counseling patient: less than 15 minutes
== END 2023-06-11 21:25 | disposition home or self-care (01) | DRG 560 ==
PROVIDERS: Admitting Provider Obstetrics & Gynecology; Visit Provider Obstetrics & Gynecology
DX: O16.4 Unspecified maternal hypertension, complicating childbirth (principal); O99.324 Drug use complicating childbirth; F12.90 Cannabis use, unspecified, uncomplicated; O99.334 Smoking (tobacco) complicating childbirth; F17.290 Nicotine dependence, other tobacco product, uncomplicated; O99.284 Endocrine, nutritional and metabolic diseases complicating childbirth; E05.90 Thyrotoxicosis, unspecified without thyrotoxic crisis or storm; Z37.0 Single live birth; Z3A.38 38 weeks gestation of pregnancy; O71.82 Other specified trauma to perineum and vulva; O70.0 First degree perineal laceration during delivery
CPT/HCPCS: 36415; 59050; 59410; 80307; 81001; 84112; 85027; 86850; 86900; 86901; 87086; 96365; 96366